=== PATIENT | male | born 1940 | race Caucasian/White ===

== ENCOUNTER → 2016-09-18 | Outpatient (CLI) | payer MEDICARE, BC | END | disposition home or self-care (01) | LOC: GMAB 10:07 | PROVIDERS: ATTEND Family Medicine | DX: Z12.5 Encounter for screening for malignant neoplasm of prostate (principal); I10 Essential (primary) hypertension | CPT/HCPCS: 84443; G0103 ==

== ENCOUNTER → 2017-12-15 | Outpatient (CLI) | payer MEDICARE, BC | LOC: GMAM 16:53 | PROVIDERS: ATTEND Family Medicine | DX: Z12.5 Encounter for screening for malignant neoplasm of prostate (principal) ==

== ENCOUNTER → 2018-05-07 | Outpatient (CLI) | payer MEDICARE, BC | LOC: GMAM 12:16 | PROVIDERS: ATTEND Family Medicine | DX: R41.82 Altered mental status, unspecified (principal) ==

== ENCOUNTER → 2018-05-13 | Outpatient (CLI) | payer MEDICARE, BC ==
--- NOTE | 2018-05-13 13:17 | MRI ---
EXAM DESCRIPTION: Brain w/wo Contrast: Magnetic Resonance Imaging. CLINICAL HISTORY: 77 years Male ALTERED MENTAL STATUS. Dementia COMPARISON: Noncontrast MRI brain 03/07/2015. TECHNIQUE: Multiplanar, high-field MRI, multiple conventional sequences, without and with gadolinium IV contrast. No adverse reactions. Multiple axial diffusion sequences. FINDINGS: Confluent hyperintense FLAIR and T2-weighted signal in the periventricular white matter, relatively symmetric. Scattered bilateral foci of hyperintense FLAIR and T2 signal in the Farrell-white matter junctions of the cerebral hemispheres. No hemorrhage, no cerebral edema, no abnormal contrast enhancement, and no diffusion restriction. Minimal foci of hyperintense T2/FLAIR signal in the posterior bilateral basal ganglia, and bilateral thalami. No hemorrhage, no cerebral edema, no diffusion restriction. Normal contrast enhancement. Normal signal in the brainstem and cerebellar hemispheres. Minimal atrophy of the hemispheres. No hemorrhage, no cerebral edema, no mass-effect. Normal contrast enhancement. Concordance of the diffusion and non-diffusion sequences with no evidence of acute or subacute infarction. Cortical sulci, ventricles, and other CSF spaces, and the subdural spaces are normally configured for patients age. No effacement or displacement. No midline shift. No extra-axial hemorrhage. Normal contrast enhancement. Normal flow signal void in the major vessels of the sleetmute Judd, and the venous sinuses. IACs are symmetric bilaterally. Minimal fluid signal in the right mastoid air cells. No mass effect in the bilateral Cerebellopontine angles. Normal contrast enhancement. Pituitary gland occupies most of the sella. Normal contrast enhancement. Base of the cerebellar tonsils is above the foramen magnum. No periosteal thickening bilaterally involving most of the paranasal sinuses. Left maxillary antrum is almost completely opacified. The bony calvarium is intact. IMPRESSION: 1. Diffuse abnormal signal in the periventricular white matter and subcortical white matter bilaterally is relatively symmetric and consistent with cerebral microvascular disease and age-related changes. Slightly progressed compared to the prior study in 2014. No abnormal contrast enhancement, no diffusion restriction, and no hemorrhage. Similar findings in the bilateral thalami and posterior basal ganglia. 2. 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 Chronic paranasal sinus disease has progressed in the left maxillary antrum which appears to represent acute sinusitis. Electronically signed by: Filippo Campbell MD 05/13/2018 1:15 PM [facility]
== END ==
LOC: MRI 09:00
PROVIDERS: ATTEND Family Medicine
DX: I67.9 Cerebrovascular disease, unspecified (principal); R41.82 Altered mental status, unspecified; H70.12 Chronic mastoiditis, left ear

== ENCOUNTER → 2018-05-18 | Outpatient (CLI) | payer MEDICARE, BC ==
--- NOTE | 2018-05-18 17:49 | US ---
EXAM DESCRIPTION: Carotid Duplex CLINICAL HISTORY: CAROTID BRUIT COMPARISON: None Available. TECHNIQUE: Carotid Doppler ultrasound FINDINGS: Right Submitted images show no significant stenosis in the common carotid, internal carotid or external carotid arteries. Calcified plaque in the carotid bulb. Calcified plaque in the tortuous right CCA. Axial image shows 26% area narrowing of the right carotid bulb. The following flow velocities were obtained: Common carotid artery peak systolic flow velocity measures 124 centimeters per second. Internal carotid artery peak systolic flow velocity measures 66 centimeters per second. External carotid artery peak systolic flow velocity measures 83 centimeters per second. Flow in the right vertebral artery is antegrade. The right internal carotid to common carotid peak systolic flow velocity ratio equals 0.5 which is normal. Left Submitted images show normal caliber of the left common carotid, internal carotid and external carotid arteries with no significant stenosis. Calcified plaque in the left CCA and at the carotid bifurcation. Axial images shows left CCA area stenosis of 31%. Area stenosis measured of the left carotid bulb is approximately 81% on axial images. High velocity flow in the left ICA is consistent with 50-69% stenosis. High-grade stenosis with elevated flow velocity in the proximal left ECA as well. The following flow velocities were obtained: Common carotid artery peak systolic flow velocity measures 90 centimeters per second. Internal carotid artery peak systolic flow velocity measures 172 centimeters per second. This is consistent with 50-69% origin stenosis. External carotid artery peak systolic flow velocity measures 251 centimeters per second. This is consistent with high-grade proximal stenosis. Flow in the left vertebral artery is antegrade. The left internal carotid to common carotid peak systolic flow velocity ratio of 1.9 is at the upper limits of normal. Images from a previous carotid Doppler sonogram April 16, 2012 showed lesser calcified plaque at the right and left carotid bifurcations with no significantly elevated flow velocities in the right or left internal carotid or common carotid arteries. There was elevated flow velocity in the left ECA up to 179 cm/s. Velocity here has increased. IMPRESSION: Elevated flow velocity consistent with 50-69% stenosis of the proximal left ICA. Elevated flow velocity in the proximal left ECA consistent with high-grade proximal stenosis. Electronically signed by: Daniele Medina MD 05/18/2018 5:48 PM TRACER CLERK
== END ==
LOC: US 16:09
PROVIDERS: ATTEND Family Medicine
DX: R09.89 Other specified symptoms and signs involving the circulatory and respiratory systems (principal)

== ENCOUNTER → 2018-05-21 | Outpatient (CLI) | payer MEDICARE, BC | LOC: GMAM 17:49 | PROVIDERS: ATTEND Family Medicine | DX: R06.02 Shortness of breath (principal) ==

== ENCOUNTER → 2018-07-21 | Outpatient (CLI) | payer MEDICARE, BC | LOC: GMAM 18:02 | PROVIDERS: ATTEND Family Medicine | DX: I67.9 Cerebrovascular disease, unspecified (principal) ==

== ENCOUNTER 2018-09-03 23:03 | Inpatient (IN) | payer MEDICARE, BC ==
[2018-09-03] MEDS ORDERED: IPRATROPIUM/ALBUTEROL 3 ML VIAL NEB ONE (23:16)
--- NOTE | 2018-09-03 23:25 | ED.PDOC ---
History of Present Illness - General Chief Complaint: Respiratory Problem Stated Complaint: Dyspnea Time Seen by Provider: 09/03/18 23:23 Source: patient, family - Exam Limitations: no limitations - History of Present Illness Initial Comments: Michele Emerson 77 y/o male came to ER with SOB and productive cough this AM gradually got worse tonight.has history of COPD. Denies chills,fever.Has HHN at home but not using it and using 3 MDI for his copd.Had been seen by trailer technician in the past. Timing/Duration: 7-24 hours Severity: moderate Activities at Onset: none Possible Cause: occasional episodes, allergen exposure Improving Factors: nothing Worsening Factors: nothing Associated Symptoms: other - see hpi Respiratory Risk Factors: exposure to allergen Allergies/Adverse Reactions: Allergies NO KNOWN ALLERGY Allergy (Verified 11/20/15 17:27) Home Medications: Ambulatory Orders Albuterol Sulfate Nebs [Proventil Nebs] 2.5 mg INH PRN PRN 11/20/15 Aspirin (Buffered) 325 mg [Bufferin 325 mg] 1 ea PO QD 11/20/15 Fluticasone/Salmeterol 500/50 [Advair 500/50 Diskus] 1 puff INH BID 11/20/15 Losartan Potassium 100 mg PO DAILY 11/20/15 Memantine HCl [Namenda] 10 mg PO BID 11/20/15 Montelukast Sodium 10 mg PO DAILY 11/20/15 Tiotropium [place] Monohydrate [Spiriva Handihaler] 18 mcg IN DAILY 11/20/15 Review of Systems - Review of Systems Constitutional: States: no symptoms reported EENTM: States: no symptoms reported Respiratory: States: see HPI Cardiology: States: no symptoms reported Gastrointestinal/Abdominal: States: no symptoms reported Genitourinary: States: no symptoms reported Musculoskeletal: States: no symptoms reported Skin: States: no symptoms reported Neurological: States: no symptoms reported All other Systems: Reviewed and Negative, No Change from Baseline Past Medical History (General) - Patient Medical History Hx Seizures: No Hx Stroke: No Hx Dementia: Yes Hx Asthma: Yes Hx of COPD: Yes Hx Cardiac Disorders: No Hx Congestive Heart Failure: No Hx Pacemaker: No Hx Hypertension: Yes Hx Diabetes: No Hx MRSA: No Surgical History: other - hernia repair;loop recorder - Vaccination History Hx Tetanus, Diphtheria Vaccination: Yes - greater then 5-10 years Hx Influenza Vaccination: Yes - 2016 Hx Pneumococcal Vaccination: Yes - 2016 - Social History Hx Tobacco Use: Yes Hx Alcohol Use: No Hx Substance Use: No Hx Physical Abuse: No Hx Emotional Abuse: No Family Medical History - Family History Father Family History: Unknown Hx Cardiac Disease: Yes - dad Hx Family;Other: Mental problem-mom;Brothers-Alzheimers disease Physical Exam - Physical Exam General Appearance: Alert, Comfortable, No apparent distress Eyes, Ears, Nose, Throat Exam: normal ENT inspection Neck: non-tender, supple, carotid bruit - left side Respiratory: chest non-tender, no respiratory distress, decreased breath sounds Cardiovascular/Chest: normal peripheral pulses, regular rate, rhythm, no murmur Peripheral Pulses: radial,right: 2+, radial,left: 2+ Gastrointestinal/Abdominal: non tender, soft Extremity: non-tender, normal inspection, no pedal edema, no calf tenderness Neurologic: alert, oriented x 3 Skin Exam: normal color, warm/dry Lymphatic: no adenopathy Progress - Progress Progress: 09/03/18 23:46 Vital Signs - 8 hr 09/03/18 09/03/18 09/03/18 23:20 23:25 23:26 Temperature 98.6 F Pulse Rate 108 H Pulse Rate [ 112 H left] Respiratory 24 24 24 Rate Blood Pressure 163/107 [left] O2 Sat by Pulse 94 L 89 L Oximetry 09/03/18 23:39 Temperature Pulse Rate 112 H Pulse Rate [ left] Respiratory 20 Rate Blood Pressure [left] O2 Sat by Pulse Oximetry - Results/Orders Results/Orders: 09/03/18 11:45 B-TYPE NATRIURETIC PEPTIDE/BNP Stat CARDIAC PANEL,ER Stat HEPATIC FUNCTION PANEL Stat 09/03/18 23:25 IV Care:Saline Lock per Protoc QSHIFT URINALYSIS Stat 09/04/18 00:18 SVN/Updraft Therapy .PRN 09/04/18 00:19 SVN/Updraft Therapy .ONCE 09/04/18 00:29 Magnesium Sulfate Premix 2Gm 2 gm Premix Bag 1 bag IVPB ONCE 09/04/18 01:06 cefTRIAXone SODIUM [Rocephin] 1 gm Sodium Chl 0.9% 50Ml Min-Bag+ [NS 50ml MINI-BAG+] 50 ml IVPB ONCE 09/04/18 01:10 ED Intent to Admit Routine Laboratory Results - last 24 hr 09/03/18 11:45 WBC 14.3 H RBC 4.70 Hgb 14.4 Hct 43.0 MCV 91.5 MCH 30.6 MCHC 33.4 RDW 13.2 Plt Count 324 MPV 7.9 Absolute Neuts (auto) 10.20 H Absolute Lymphs (auto) 2.30 Absolute Monos (auto) 1.50 H Absolute Eos (auto) 0.10 Absolute Basos (auto) 0.10 Neutrophils % 71.6 Lymphocytes % 16.4 L Monocytes % 10.9 H Eosinophils % 0.4 L Basophils % 0.7 PT 10.3 INR 1.03 PTT (SP) 26.6 Sodium 134 L Potassium 3.5 L Chloride 98 L Carbon Dioxide 24 Anion Gap 15.5 BUN 9 Creatinine 0.66 BUN/Creatinine Ratio 13.6 Random Glucose 132 H Serum Osmolality 268.8 L Calcium 8.7 Magnesium 0.9 L* Total Bilirubin 0.3 Direct Bilirubin 0.1 Indirect Bilirubin 0.2 AST 26 ALT 24 Alkaline Phosphatase 56 Creatine Kinase 281 H* CK-MB (CK-2) 8.9 H* CK-MB (CK-2) % 3.17 Troponin I < 0.02 Serum Total Protein 7.7 Albumin 4.5 - EKG/XRAY/CT XRAY: chest - no acute findings noted Departure - Departure Clinical Impression: COPD exacerbation, Hypomagnesemia Time of Disposition: 01:12 Disposition: Admit Patient Condition: Fair Departure Forms: Patient Portal Self Enrollment Referrals: Rick Nguyen MD [Primary Care Provider] - 1-2 Weeks Home Medications: Ambulatory Orders Albuterol Sulfate Nebs [Proventil Nebs] 2.5 mg INH PRN PRN 11/20/15 Aspirin (Buffered) 325 mg [Bufferin 325 mg] 1 ea PO QD 11/20/15 Fluticasone/Salmeterol 500/50 [Advair 500/50 Diskus] 1 puff INH BID 11/20/15 Losartan Potassium 100 mg PO DAILY 11/20/15 Memantine HCl [Namenda] 10 mg PO BID 11/20/15 Montelukast Sodium 10 mg PO DAILY 11/20/15 Tiotropium [place] Monohydrate [Spiriva Handihaler] 18 mcg IN DAILY 11/20/15 Decision To Admit - Decistion To Admit Decision to Admit Reason: Admit from ER Decision to Admit Date: 09/04/18 Decision to Admit Time: 01:09 - D/W Nina Cagle-DIANE/Hospitalist
[2018-09-03] MEDS ORDERED: methylPREDNISolone SODIUM SUC 125 MG/2 ML VIAL IV ONE (23:46)
--- NOTE | 2018-09-03 23:55 | RAD ---
EXAM: XR Chest, 2 Views CLINICAL HISTORY: The patient is 77 years old and is Male; Dyspnea TECHNIQUE: Frontal and lateral views of the chest. COMPARISON: Chest radiograph December 02, 2015. FINDINGS: LUNGS: Suggestion of scarring/pleural thickening within the left lower lobe is noted, unchanged. No consolidation. PLEURAL SPACE: Unremarkable. No pneumothorax. HEART: The cardiac silhouette is stable and minimally prominent. MEDIASTINUM: Unremarkable. BONES/JOINTS: Unremarkable. VASCULATURE: Prominence of the central vasculature is noted. IMPRESSION: No acute cardiopulmonary process. Electronically signed by: Ale Gamez MD 09/03/2018 11:54 PM CDT
[2018-09-04] MEDS ORDERED: LEVALBUTEROL NEBS 1.25 MG/3 ML VIAL NEB ONE (00:18)
[2018-09-04] MEDS ORDERED: MAGNESIUM SULFATE PREMIX 2GM 2 GM in PREMIX BAG 1 BAG IVPB ONE ×2 (00:29→10:08)
[2018-09-04] MEDS ORDERED: MAGNESIUM SULFATE PREMIX 2GM 50 ML IVPB ONE ×2 (00:44→10:13)
[2018-09-04] MEDS ORDERED: cefTRIAXone SODIUM 1 GM in SODIUM CHL 0.9% 50ML MIN-BAG+ 50 ML IVPB ONE (01:06)
--- NOTE | 2018-09-04 01:20 | HP ---
SUPERVISING PHYSICIAN: Slick Sharp MD CHIEF COMPLAINT: Shortness of breath. HISTORY OF PRESENT ILLNESS: This is a 77-year-old male patient who had been coughing with clear sputum for several days. His reported that he had also been wheezing. He does not like to take his nebulizer treatments at home and only uses his MDI. It progressively worsened to the point that he had to come to the Emergency Room last night. His oxygen saturations got down to 89%. He required multiple breathing treatments. His heart rate was in the 1-teens. He was afebrile. Respiratory rate was 24. His WBCs were 14,300 with hemoglobin 14.4, hematocrit 43. Sodium 134, potassium 3.5, chloride 98, serum osmolality 268.8 with magnesium 0.9. His liver functions were within normal limits. Troponin was less than 0.02 with creatinine kinase 281 and CK-MB 8.9. Urinalysis was unremarkable. Chest x-ray showed no acute cardiopulmonary process. I was called for hospital admission. PAST MEDICAL HISTORY: 1. History of paroxysmal atrial fibrillation on metoprolol and Xarelto. 2. Hyperlipidemia. 3. Hypertension on losartan and metoprolol. 4. Chronic obstructive pulmonary disease. 5. Dementia. PAST SURGICAL HISTORY: 1. Bilateral inguinal hernia repair. OUTPATIENT MEDICATIONS: 1. Albuterol. 2. Aspirin. 3. Donepezil. 4. Losartan. 5. Namenda. 6. Metoprolol. 7. Mometasone Furoate-Formoterol. 8. Phenytoin. 9. Xarelto. 10. Rosuvastatin. 11. Spiriva. ALLERGIES: NO KNOWN DRUG ALLERGIES. FAMILY HISTORY: Positive for congestive heart failure, coronary artery disease and myocardial infarction. SOCIAL HISTORY: He is retired. He lives in [place]. He quit smoking tobacco approximately 38 years ago. He drinks alcohol socially. He denies any illicit drug use. REVIEW OF SYSTEMS: GENERAL: Negative for fever, fatigue or weight changes. HEENT: Negative for sinus symptoms, ear pain, vision changes or sore throat. RESPIRATORY: Positive for wheezing, coughing or shortness of breath. CARDIAC: Negative for chest pain, palpitations or tachycardia. GASTROINTESTINAL: Negative for nausea, vomiting, diarrhea, constipation. GENITOURINARY: Negative for hematuria, dysuria or polyuria. MUSCULOSKELETAL: Negative for arthralgias, myalgias. SKIN: Negative for lesions or rashes. NEUROLOGIC: Negative for headache, dizziness. PHYSICAL EXAMINATION: VITAL SIGNS: T-max 24 hours is 99. Heart rate 107. Blood pressure 138/85. Respiratory rate 20. O2 saturation 91% on 2 liters nasal cannula. GENERAL: This is a 77-year-old male patient who is sitting up in his hospital bed. He is in mild respiratory distress. HEENT: Normocephalic, atraumatic. Pupils are equal and reactive. Oropharynx is clear. NECK: Supple without mass. RESPIRATORY: Diminished breath sounds throughout with a few expiratory wheezes. He is slightly tachypneic with exertion or speaking. He does have to speak in short phrases due his shortness of breath. CARDIOVASCULAR: Slightly tachycardic rate, slightly irregular rhythm. GASTROINTESTINAL: Abdomen is soft, nondistended, nontender. Bowel sounds are positive. EXTREMITIES: No cyanosis, clubbing or edema. NEUROLOGIC: Awake, alert and oriented times three. Cranial nerves II-XII are grossly intact. SKIN: Warm and dry. LABORATORY: AM labs show slight improvement to his WBCs of 12,100 with hemoglobin 13.4 and hematocrit 40.6. He does have a left shift on differential. Electrolytes are basically within normal limits with the exception of his calcium is 8.2. On admission, his magnesium was 0.9. After replacement today, it is 1.4. Sputum culture pending. IMPRESSION: 1. Sepsis related to acute bronchitis with an exacerbation of chronic obstructive pulmonary disease with concerns for developing community acquired pneumonia with an admitting white count of 14,300, heart rate 110 and respiratory rate 24. 2. Chronic obstructive pulmonary disease with acute exacerbation in a patient with previous history of tobacco use. 3. Hypertension, well controlled on medications. 4. Hyperlipidemia. 5. History of atrial fibrillation on Xarelto and metoprolol. 6. Dementia. PLAN: We will admit the patient to the hospital. I have started him on aggressive pulmonary hygiene including scheduled and p.r.n. nebulizer treatments. I have also given him a tapered dose of IV steroids. I will also give him some magnesium replacement today and recheck his labs in the morning as well as chest x-ray. He has been started on azithromycin and Rocephin. He would most likely benefit from pulmonary rehab after discharge and tomorrow, I will do an ambulation study to see if he meets requirements for home oxygen. He has seen a jaw skinner in the past and he may need followup with Dr. Evangelista. I have also had a lengthy discussion about the need for nebulizer treatments at home. We will continue to monitor the patient closely and follow as needed. #[id number] [facility]
[2018-09-04] MEDS ORDERED: cefTRIAXone SODIUM 1 GM VIAL ONE ×2 (01:58→18:57)
[2018-09-04] MEDS ORDERED: SODIUM CHL 0.9% 50ML MIN-BAG+ 50 ML IVPB ONE ×2 (01:58→18:56)
[2018-09-04] MEDS ORDERED: SODIUM CHLORIDE 0.9% (FLUSH) 10 ML SYG IV PRN (02:48)
[2018-09-04] MEDS ORDERED: ALBUTEROL SULFATE 2.5 MG/3 ML VIAL NEB PRN ×2 (02:48→09:00)
[2018-09-04] MEDS ORDERED: IV SET AND CAP CHANGE INJ INJ SCH (03:00)
[2018-09-04] MEDS ORDERED: KCL 20 MEQ/NS 1,000 ML IVS ONE (03:01)
[2018-09-04] MEDS ORDERED: SODIUM CHLORIDE 0.9% 250ML 250 ML ONE ×2 (03:51→18:56)
[2018-09-04] MEDS ORDERED: AZITHROMYCIN IV 500 MG VIAL IVPB ONE ×2 (03:51→18:57)
[2018-09-04] MEDS: AZITHROMYCIN IV 500 MG in SODIUM CHLORIDE 0.9% 250ML 250 ML IVPB SCH (05:31)
[2018-09-04] MEDS: PANTOPRAZOLE SODIUM IV 40 MG VIAL IV SCH (06:10)
[2018-09-04] MEDS ORDERED: PHENYTOIN SODIUM CAP EXTENDED 100 MG CAP PO ONE (07:20)
[2018-09-04] MEDS ORDERED: RIVAROXABAN 10 MG TAB ONE (07:20)
[2018-09-04] MEDS ORDERED: DONEPEZIL HCL 5 MG TAB ONE (07:21)
[2018-09-04] MEDS: IPRATROPIUM/ALBUTEROL 3 ML VIAL INH SCH ×4 (08:10→20:31)
[2018-09-04] MEDS: PHENYTOIN SODIUM CAP EXTENDED 100 MG CAP PO SCH (08:57)
[2018-09-04] MEDS: METOPROLOL TARTRATE 25 MG TAB PO SCH (08:57)
[2018-09-04] MEDS: DONEPEZIL HCL 5 MG TAB PO SCH (08:58)
[2018-09-04] MEDS: MEMANTINE 10 MG TAB PO SCH ×2 (08:58→20:38)
[2018-09-04] MEDS: LOSARTAN POTASSIUM 100 MG TAB PO SCH (08:58)
[2018-09-04] MEDS ORDERED: ASPIRIN 325 MG PO SCH (09:00)
[2018-09-04] MEDS ORDERED: ASPIRIN TABLET 325 MG TAB ONE (09:00)
[2018-09-04] MEDS ORDERED: TIOTROPIUM INHALER INH SCH (09:00)
[2018-09-04] MEDS: RIVAROXABAN 10 MG TAB PO SCH (09:02)
[2018-09-04] MEDS: ATORVASTATIN 20 MG TAB PO SCH (09:02)
[2018-09-04] MEDS: SODIUM CHLORIDE 0.9% (FLUSH) 10 ML SYG IV SCH ×2 (09:09→20:38)
[2018-09-04] MEDS: methylPREDNISolone SODIUM SUC 125 MG/2 ML VIAL IV SCH ×3 (12:12→23:33)
[2018-09-05] MEDS ORDERED: cefTRIAXone SODIUM 1 GM in SODIUM CHL 0.9% 50ML MIN-BAG+ 50 ML IVPB SCH ×2
[2018-09-05] MEDS: methylPREDNISolone SODIUM SUC 125 MG/2 ML VIAL IV SCH (05:35)
[2018-09-05] MEDS: AZITHROMYCIN IV 500 MG in SODIUM CHLORIDE 0.9% 250ML 250 ML IVPB SCH (05:35)
[2018-09-05] MEDS: PANTOPRAZOLE SODIUM IV 40 MG VIAL IV SCH (06:15)
--- NOTE | 2018-09-05 07:26 | RAD ---
EXAM: XR Chest, 2 Views CLINICAL HISTORY: The patient is 77 years old and is Male; copd TECHNIQUE: Frontal and lateral views of the chest. COMPARISON: Chest radiograph from 09/03/2018 FINDINGS: LUNGS: Minimal left basilar density suggesting atelectasis. The lungs are otherwise clear. PLEURAL SPACE: No significant pleural effusion. No obvious pneumothorax. HEART: Stable mild enlargement of the cardiac silhouette. MEDIASTINUM: Unremarkable. BONES/JOINTS: Stable height loss of a lower thoracic vertebral body. No acute fracture visualized. TUBES, LINES AND DEVICES: Implanted loop recorder noted projecting over the anterior chest wall. IMPRESSION: Minimal left basilar atelectasis. Electronically signed by: Justyna Cunningham MD 09/05/2018 7:24 AM CDT
[2018-09-05] MEDS: IPRATROPIUM/ALBUTEROL 3 ML VIAL INH SCH ×4 (08:15→20:17)
[2018-09-05] MEDS: LOSARTAN POTASSIUM 100 MG TAB PO SCH (09:11)
[2018-09-05] MEDS: ATORVASTATIN 20 MG TAB PO SCH (09:11)
[2018-09-05] MEDS: DONEPEZIL HCL 5 MG TAB PO SCH (09:11)
[2018-09-05] MEDS: ASPIRIN TABLET 325 MG TAB PO SCH (09:11)
[2018-09-05] MEDS: RIVAROXABAN 10 MG TAB PO SCH (09:12)
[2018-09-05] MEDS: MEMANTINE 10 MG TAB PO SCH ×2 (09:13→20:37)
[2018-09-05] MEDS: METOPROLOL TARTRATE 25 MG TAB PO SCH (09:16)
[2018-09-05] MEDS: SODIUM CHLORIDE 0.9% (FLUSH) 10 ML SYG IV SCH (09:22)
[2018-09-05] MEDS: PHENYTOIN SODIUM CAP EXTENDED 100 MG CAP PO SCH (09:24)
[2018-09-05] MEDS: TIOTROPIUM INHALER INH SCH (11:40)
[2018-09-05] MEDS: methylPREDNISolone SODIUM SUC 40 MG/ML VIAL IV SCH ×2 (12:43→18:03)
[2018-09-05] MEDS: guaiFENesin ER TAB 600 MG TAB PO SCH ×2 (12:43→20:37)
--- NOTE | 2018-09-05 12:46 | PN ---
DATE: 09/05/18 SUPERVISING PHYSICIAN: Slick Sharp M.D. SUBJECTIVE: The patient is sitting up in his chair in his room. He looks to be in moderate respiratory distress with pursed lip breathing. We discussed going to pulmonary rehab as well as seeing a ear nose and throat specialist as well as doing a sleep apnea study. His says that he get very short of breath just going in and out of their house. I discussed at length his nebulizer treatments as well as the chronic medications to control symptoms, and that he may need further testing after discharge. Today, he continues complaints of shortness of breath but there is no chest pain, nausea, vomiting, diarrhea or constipation. OBJECTIVE: Temperature 98.2, heart rate 96, blood pressure 119/65, respiratory rate 24, O2 sat 91%. RESPIRATORY: Diminished breath sounds throughout. The patient is visibly short of breath. He does have pursed lip breathing. He can only speak in short phrases. CARDIAC: Regular rate and rhythm. GASTROINTESTINAL: Abdomen is soft, nondistended, non-tender. Bowel sounds are positive. NEUROLOGIC: He is awake, alert and oriented times three. LABORATORY: WBCs are 13,100 with hemoglobin 12.2, hematocrit 36.8. Sodium 132, potassium 4.1, chloride 98, calcium 7.6, magnesium 1.8. Sputum culture is pending. Chest x-ray shows minima left basilar atelectasis. All other labs and films have been reviewed via the EMR. ASSESSMENT: 1. Sepsis related to acute bronchitis with an exacerbation of chronic obstructive pulmonary disease with continued concerns for developing community acquired pneumonia. His admitting white count was 14,300, heart rate 110 and respiratory rate 24. 2. Chronic obstructive pulmonary disease with acute exacerbation in a patient with previous history of tobacco use. 3. Hypertension, well controlled on medications. 4. Hyperlipidemia. 5. History of atrial fibrillation on Xarelto and metoprolol. 6. Dementia. 7. Hypomagnesemia that has resolved. PLAN: We will continue present supportive care. I have reordered lab in the morning. Will hold on the chest x-ray until Friday. For some reason his ambulation study was not done yesterday and I will have them do that today to see if he qualifies for home oxygen. I have also encouraged him to ambulate in the hallways. He will need a followup with his ear nose and throat specialist, Dr. Evangelista, as well as possible pulmonary rehab on discharge. He may benefit also from a sleep apnea study. We will continue to monitor him closely and follow as needed. #[id number] [facility]
[2018-09-05] MEDS ORDERED: CEFUROXIME AXETIL TAB 250 MG TAB PO ONE (18:10)
[2018-09-05] MEDS: CEFUROXIME AXETIL TAB 250 MG TAB PO SCH (18:16)
[2018-09-05] MEDS ORDERED: CEFDINIR 300 MG CAP ONE (18:17)
[2018-09-05] MEDS: ALPRAZolam 0.25 MG TAB PO PRN (18:20)
[2018-09-05] MEDS ORDERED: CEFUROXIME AXETIL TAB 250 MG TAB PO SCH (18:30)
[2018-09-05] MEDS ORDERED: PHENYTOIN SODIUM CAP EXTENDED 100 MG CAP PO SCH (21:00)
[2018-09-06] MEDS: ALPRAZolam 0.25 MG TAB PO PRN (01:57)
[2018-09-06] MEDS: CEFUROXIME AXETIL TAB 250 MG TAB PO SCH (05:46)
[2018-09-06 06:11] VITALS: BP 165/80; TEMP 97.8
[2018-09-06] MEDS ORDERED: PANTOPRAZOLE SODIUM TAB 40 MG PO SCH (06:30)
[2018-09-06] MEDS: IPRATROPIUM/ALBUTEROL 3 ML VIAL INH SCH ×2 (07:41→11:44)
[2018-09-06] MEDS: TIOTROPIUM INHALER INH SCH (07:42)
[2018-09-06] MEDS ORDERED: predniSONE 20 MG TAB PO SCH (09:00)
[2018-09-06] MEDS ORDERED: AZITHROMYCIN 250 MG TAB PO ONE (09:00)
[2018-09-06] MEDS: MEMANTINE 10 MG TAB PO SCH (11:08)
[2018-09-06] MEDS: ASPIRIN TABLET 325 MG TAB PO SCH (11:09)
[2018-09-06] MEDS: METOPROLOL TARTRATE 25 MG TAB PO SCH (11:09)
[2018-09-06] MEDS: guaiFENesin ER TAB 600 MG TAB PO SCH (11:11)
[2018-09-06] MEDS: LOSARTAN POTASSIUM 100 MG TAB PO SCH (11:11)
[2018-09-06] MEDS: DONEPEZIL HCL 5 MG TAB PO SCH (11:12)
[2018-09-06] MEDS: ATORVASTATIN 20 MG TAB PO SCH (11:12)
[2018-09-06] MEDS: RIVAROXABAN 10 MG TAB PO SCH (11:12)
[2018-09-06] MEDS ORDERED: MAGNESIUM OXIDE 400 MG TAB PO SCH (11:30)
[2018-09-06 17:04] VITALS: O2SAT 93
--- NOTE | 2018-09-06 22:10 | DS ---
SUPERVISING PHYSICIAN: Slick Sharp M.D. DISCHARGE DIAGNOSIS: 1. Sepsis related to acute bronchitis with an exacerbation of chronic obstructive pulmonary disease with continued concerns for developing community acquired pneumonia. His admitting white count was 14,300, heart rate 110 and respiratory rate 24. 2. Chronic obstructive pulmonary disease with acute exacerbation in a patient with previous history of tobacco use. 3. Hypertension, well controlled on medications. 4. Hyperlipidemia. 5. History of atrial fibrillation on Xarelto and metoprolol. 6. Dementia. 7. Hypomagnesemia. Has received multiple doses of magnesium replacement. HISTORY OF PRESENT ILLNESS: This is a 77-year-old male patient who had been coughing with clear sputum for several days. His reported that he had also been wheezing. He is poorly compliant with his nebulizer treatments at home and he only uses his MDI. His shortness of breath worsened progressively to the point that he came to the Emergency Room. His O2 sats got down to 89%. He was pursed lip breathing. He required multiple breathing treatments. His heart rate was in the 1-teens. He was afebrile. Respiratory rate was 24. CBC showed WBCs of 14,300 with hemoglobin 14.4, hematocrit 43. Sodium 134, potassium 3.5, chloride 98, serum osmolality 268.8 with magnesium 0.9. His liver functions were within normal limits. Troponin was less than 0.02 with creatinine kinase 281 and CK-MB 8.9. Urinalysis was unremarkable. Chest x-ray showed no acute cardiopulmonary process. The patient was admitted to the hospital. HOSPITAL COURSE: The patient continued to be short of breath over the next several days. He was continued on Rocephin and azithromycin as well as IV steroids. He and his got extensive COPD teaching on the importance of using his nebulizer and compliance with his COPD medications. The patient does have some dementia and he does have some issues with following his medication orders. He actually had pursed lip breathing for the first 48 hours while in the hospital, but he slowly improved where his oxygen saturations stayed in the low 90s on room air. An O2 ambulation study was completed and at this time he does not qualify for home oxygen. He does have some problems with his dementia and last night he became agitated and was more confused than normal most likely due to his dementia and some mild Sundowner's syndrome. Today, he is answering questions appropriately and his vital signs are stable. He can be discharged home in stable condition. LABORATORY: WBCs started at 14,300 and today are 13,000. He is on steroids. Hemoglobin and hematocrit started at 14.4 and 43, and today are 12 and 36.6. He did have a left shift on his differential but that has normalized now. Electrolytes are basically within normal limits today with the exception of his magnesium. After supplementation, his magnesium went up to 1.4 and then 1.8, today it is 1.6. He received some oral mag ox today. His sputum culture is still pending. RADIOLOGY: Followup chest x-ray shows minimal left basilar atelectasis. DISCHARGE PLAN: The patient will be discharged home in stable condition. He is to resume his previous diet. He is also to resume his previous medications. I have added azithromycin, Ceftin and a prednisone taper as well as Guaifenesin to his routine medications. He is to call Dr. Nguyen's office in the morning for hospital followup visit. It is recommended he get a chest x-ray, CBC and CMP, including magnesium on followup. He has seen Dr. Evangelista, salesperson [employer], in the past and it may be advisable to have a followup appointment with him, and he also may benefit from pulmonary rehab. I spoke to the family at length and his would really like him to participate in pulmonary rehab. I did not send him home on any magnesium supplementation, but given his chronically low magnesium in spite of supplementation it may be beneficial to add some magnesium supplementation at some point. I have again encouraged him to take his medications as prescribed by Dr. Nguyen and Dr. Evangelista. He is to return to the hospital or followup with Dr. Nguyen's office for any problems or complications. DISCHARGE MEDICATIONS: 1. Spiriva. 2. Namenda. 3. Losartan. 4. Aspirin. 5. Albuterol nebs. 6. Phenytoin. 7. Albuterol sulfate MDI. 8. Donepezil. 9. Rosuvastatin. 10. Xarelto. 11. Dulera. 12. Metoprolol. 13. Azithromycin. 14. Ceftin. 15. Guaifenesin. 16. Prednisone taper. #[id number] [facility]
== END 2018-09-06 12:25 | disposition home or self-care (01) | DRG 872 ==
LOC: ER 23:03 → MS 09-04 01:19 → OBSVTOIN 09-04 01:19
PROVIDERS: ADMIT Nurse Practitioner Acute Care; ATTEND Nurse Practitioner Acute Care
DX: A41.9 Sepsis, unspecified organism (principal); J44.0 Chronic obstructive pulmonary disease with (acute) lower respiratory infection; J44.1 Chronic obstructive pulmonary disease with (acute) exacerbation; F05 Delirium due to known physiological condition; I48.0 Paroxysmal atrial fibrillation; J20.9 Acute bronchitis, unspecified; I10 Essential (primary) hypertension; E78.5 Hyperlipidemia, unspecified; F03.90 Unspecified dementia, unspecified severity, without behavioral disturbance, psychotic disturbance, mood disturbance, and anxiety; E83.42 Hypomagnesemia; Z79.01 Long term (current) use of anticoagulants; Z79.82 Long term (current) use of aspirin; Z79.51 Long term (current) use of inhaled steroids; Z87.891 Personal history of nicotine dependence; Z82.49 Family history of ischemic heart disease and other diseases of the circulatory system; Z82.0 Family history of epilepsy and other diseases of the nervous system

== ENCOUNTER 2018-09-18 20:12 | Emergency (ER) | payer MEDICARE, BC ==
--- NOTE | 2018-09-18 20:14 | ED.PDOC ---
History of Present Illness - General Chief Complaint: Upper Extremity Injury Stated Complaint: fall Time Seen by Provider: 09/18/18 20:14 Source: patient, family Exam Limitations: no limitations - History of Present Illness Initial Comments: Michele Emerson 77 y/o male stated after getting out of car in the garage he had suddenly fall and stated might have passed out but denies head neck injury but with skin tear on his right elbow and hand after incident.Denies weakness,dysarthria ,headache,neck pains hip pains .Incident witnessed by family members.He was able to remember incident.Had neuroimaging studies in the past showing microvascular disease with decreas hippocampal volumes. Occurred: just prior to arrival Severity: moderate Injuries/Pain Location: upper extremity - right elbow and hand Reason for Fall: lost balance Loss of Consciousness: brief (seconds) Improving Factors: nothing Worsening Factors: nothing Associated Symptoms (Fall): denies symptoms Allergies/Adverse Reactions: Allergies NO KNOWN ALLERGY Allergy (Verified 09/04/18 02:26) Home Medications: Ambulatory Orders Albuterol Sulfate Nebs [Proventil Nebs] 2.5 mg INH PRN PRN 11/20/15 Aspirin (Buffered) 325 mg [Bufferin 325 mg] 1 ea PO QD 11/20/15 Losartan Potassium 100 mg PO DAILY 11/20/15 Memantine HCl [Namenda] 10 mg PO BID 11/20/15 Tiotropium [place] Monohydrate [Spiriva Handihaler] 18 mcg IN DAILY 11/20/15 Albuterol Sulfate [Proair Hfa] 1 puff PO PRN PRN 09/04/18 Metoprolol Tartrate 12.5 mg PO DAILY 09/04/18 Phenytoin Sodium Extended 300 mg PO DAILY 09/04/18 Rivaroxaban [Xarelto] 20 mg PO DAILY 09/04/18 Rosuvastatin Calcium 20 mg PO DAILY 09/04/18 Memantine HCl [Namenda] 10 mg PO DAILY 09/18/18 Review of Systems - Review of Systems Constitutional: States: no symptoms reported EENTM: States: no symptoms reported Respiratory: States: no symptoms reported Cardiology: States: no symptoms reported Gastrointestinal/Abdominal: States: no symptoms reported Genitourinary: States: no symptoms reported Skin: States: see HPI Neurological: States: see HPI All other Systems: Reviewed and Negative, No Change from Baseline Past Medical History (General) - Patient Medical History Hx Seizures: Yes Hx Stroke: No Hx Dementia: Yes Hx Asthma: No Hx of COPD: Yes Hx Cardiac Disorders: No Hx Congestive Heart Failure: No Hx Pacemaker: No Hx Hypertension: Yes Hx Diabetes: No Hx MRSA: No Surgical History: other - hernia repair,loop recrorder - Vaccination History Hx Tetanus, Diphtheria Vaccination: Yes - greater then 5-10 years Hx Influenza Vaccination: Yes - 2016 Hx Pneumococcal Vaccination: Yes - 2016 - Social History Hx Tobacco Use: Yes Hx Alcohol Use: No Hx Substance Use: No Hx Physical Abuse: No Hx Emotional Abuse: No Physical Exam - Physical Exam General Appearance: Alert, Comfortable, No apparent distress Head Injury: no evidence of injury Eye Exam: bilateral normal ENT Exam: hearing grossly normal, no evidence of ENT injury, no dental injury Peripheral Pulses: radial,right: 2+, radial,left: 2+ Cardiovascular/Respiratory: regular rate, rhythm, no M/R/G, normal peripheral pulses, no respiratory distress, other - decrease breath sounds Gastrointestinal/Abdominal: non tender, soft Back Exam: no CVA tenderness, no vertebral tenderness Extremity Exam: no pedal edema, pain with movement Neurologic: alert Skin Exam: normal color, warm/dry, other - skin tear right elbow and hand - [place] Coma Score Best Eye Response ([place]): (4) open spontaneously Best Verbal Response ([place]): (5) oriented Best Motor Response ([place]): (6) obeys commands [place] Total: 15 Progress - Progress Progress: 09/18/18 21:09 Vital Signs - 8 hr 09/18/18 09/18/18 20:23 20:30 Temperature 98.7 F Pulse Rate [ 72 82 Left Brachial] Respiratory 22 20 Rate Blood Pressure 187/72 150/69 [Left Arm] O2 Sat by Pulse 99 95 Oximetry 09/18/18 21:49 Skin tear cleanse with saline adaptic applied and stretch bandage. 09/18/18 21:51 Discuss all test result with patient and - Results/Orders Results/Orders: Laboratory Tests 09/18/18 09/18/18 20:43 20:57 WBC 13.3 H RBC 4.37 L Hgb 13.4 L Hct 40.1 L MCV 91.7 MCH 30.7 MCHC 33.5 RDW 13.1 Plt Count 290 MPV 8.0 Absolute Neuts (auto) 10.10 H Absolute Lymphs (auto) 2.00 Absolute Monos (auto) 1.00 H Absolute Eos (auto) 0.00 Absolute Basos (auto) 0.10 Neutrophils % 76.2 Lymphocytes % 15.2 L Monocytes % 7.5 Eosinophils % 0.2 L Basophils % 0.9 PT 10.8 INR 1.08 PTT (SP) 26.4 Sodium 134 L Potassium 3.9 Chloride 98 L Carbon Dioxide 26 Anion Gap 13.9 BUN 17 Creatinine 0.75 BUN/Creatinine Ratio 22.7 H Random Glucose 155 H Serum Osmolality 271.1 L Calcium 8.3 L Magnesium 1.1 L Total Bilirubin 0.9 Direct Bilirubin 0.4 H Indirect Bilirubin 0.5 AST 38 ALT 33 Alkaline Phosphatase 51 Creatine Kinase 101 CK-MB (CK-2) 4.4 CK-MB (CK-2) % Not Reportable Troponin I < 0.02 Serum Total Protein 6.5 Albumin 3.7 Phenytoin 10.3 - EKG/XRAY/CT EKG: Sinus, RBBB - incomplete, nonspecific ST T wave Chg, Unchanged from - 20 november 2015 Comments: HR-75 XRAY: elbow - right-no fracture/dislocationj CT Ordered: Yes - small vessel disease;no hemoorhage or infarct Departure - Departure Clinical Impression: Hypomagnesemia, Hypocalcemia Fall Qualifiers: Encounter type: initial encounter Qualified Code(s): W19.XXXA - Unspecified fall, initial encounter Skin tear of elbow without complication Qualifiers: Encounter type: initial encounter Laterality: right Qualified Code(s): S51.011A - Laceration without foreign body of right elbow, initial encounter Time of Disposition: 21:51 Disposition: Discharge to Home or Self Care Condition: Fair Departure Forms: ED Discharge - Pt. Copy, Patient Portal Self Enrollment Instructions: Skin Abrasions (DC) Referrals: Rick Nguyen MD [Primary Care Provider] - 1-2 Weeks Home Medications: Ambulatory Orders Albuterol Sulfate Nebs [Proventil Nebs] 2.5 mg INH PRN PRN 11/20/15 Aspirin (Buffered) 325 mg [Bufferin 325 mg] 1 ea PO QD 11/20/15 Losartan Potassium 100 mg PO DAILY 11/20/15 Memantine HCl [Namenda] 10 mg PO BID 11/20/15 Tiotropium [place] Monohydrate [Spiriva Handihaler] 18 mcg IN DAILY 11/20/15 Albuterol Sulfate [Proair Hfa] 1 puff PO PRN PRN 09/04/18 Metoprolol Tartrate 12.5 mg PO DAILY 09/04/18 Phenytoin Sodium Extended 300 mg PO DAILY 09/04/18 Rivaroxaban [Xarelto] 20 mg PO DAILY 09/04/18 Rosuvastatin Calcium 20 mg PO DAILY 09/04/18 Memantine HCl [Namenda] 10 mg PO DAILY 09/18/18 Additional Instructions: Need to take OVER THE COUNTER MEDICATIONS:MAG-OX 2 TABLETS 3 X A DAY;VITAMIN D 5000 units daily;Continue with rest of home medications ;Keep appointment with primary Md;Return to Emergency Room as needed
[2018-09-18] MEDS ORDERED: CHLORHEXIDINE GLUCONATE 4 % 15 ML UD TOP ONE (20:21)
[2018-09-18 20:25] VITALS: TEMP 98.7
[2018-09-18] MEDS ORDERED: TETANUS,DIPHTHERIA,PERTUSSIS 1 EA SYG IM ONE (20:58)
[2018-09-18 20:59] VITALS: O2SAT 95
--- NOTE | 2018-09-18 21:04 | RAD ---
EXAM DESCRIPTION: Elbow,Right 2 Views CLINICAL HISTORY: 77 years Male laceration COMPARISON: None TECHNIQUE: Two images of the right elbow were obtained. FINDINGS: No fracture seen. No evidence for joint effusion. Normal bony mineralization. No erosive or lytic lesions seen. IMPRESSION: No fracture or dislocation seen. Electronically signed by: Deanna Ramirez MD 09/18/2018 9:01 PM CDT
[2018-09-18] MEDS ORDERED: MAGNESIUM SULFATE PREMIX 2GM 2 GM in PREMIX BAG 1 BAG IVPB ONE (21:10)
[2018-09-18] MEDS ORDERED: MAGNESIUM SULFATE PREMIX 2GM 50 ML IVPB ONE (21:15)
--- NOTE | 2018-09-18 21:21 | CT ---
EXAM: Head CLINICAL INDICATION: 77-year-old male, passed out. COMPARISON: MRI brain 03/07/2015. TECHNIQUE: CT brain without contrast. This exam was performed according to our departmental dose optimization program which includes use of automated exposure control, adjustment of the mA and/or kV according to patient size and/or use of iterative reconstruction technique. FINDINGS: Multifocal regions of patchy hypoattenuation are present in a subcortical and periventricular deep white matter distribution, nonspecific; however, most likely represent small vessel ischemic disease, age indeterminate. Subcentimeter hypoattenuation within the bilateral basal ganglia stable in comparison to the previous examination compatible with sequela of prior infarction. The ventricles, and sulci are enlarged compatible with underlying volume loss. The [place]-white matter differentiation is preserved. There is no mass effect, midline shift, intra- or extra-axial fluid collection/acute hemorrhage. The osseous structures are unremarkable. The paranasal sinuses and mastoid air cells are clear. IMPRESSION: 1. No acute intracranial abnormalities. Nonspecific white matter change most likely small vessel ischemic disease, age indeterminate. 2. CT is insensitive for early evaluation of acute stroke. If there is clinical concern for acute ischemia, an MRI may be considered. Electronically signed by: Romelia Mahoney MD 09/18/2018 9:19 PM CDT
[2018-09-18 21:50] VITALS: BP 187/89
== END 2018-09-18 22:12 | disposition home or self-care (01) ==
LOC: ER 20:12
DX: S51.011A Laceration without foreign body of right elbow, initial encounter (principal); E83.51 Hypocalcemia; E83.42 Hypomagnesemia; I45.10 Unspecified right bundle-branch block; R56.9 Unspecified convulsions; F03.90 Unspecified dementia, unspecified severity, without behavioral disturbance, psychotic disturbance, mood disturbance, and anxiety; J44.9 Chronic obstructive pulmonary disease, unspecified; I10 Essential (primary) hypertension; Z87.891 Personal history of nicotine dependence; Z79.899 Other long term (current) drug therapy; Z79.82 Long term (current) use of aspirin; W18.39XA Other fall on same level, initial encounter; Y92.89 Other specified places as the place of occurrence of the external cause
CPT/HCPCS: 36415; 70450; 73070; 80048; 80076; 80185; 82550; 82553; 84484; 85025; 85610; 85730; 90471; 90715; 93005; J3475

== ENCOUNTER → 2018-10-13 | Outpatient (CLI) | payer MEDICARE, BC | LOC: GMAM 10:09 | PROVIDERS: ATTEND Family Medicine | DX: R61 Generalized hyperhidrosis (principal) ==

== ENCOUNTER 2019-01-25 15:38 | Emergency (ER) | payer MEDICARE, BC ==
[2019-01-25] MEDS ORDERED: IPRATROPIUM/ALBUTEROL 3 ML VIAL NEB ONE ×4 (15:52→18:25)
[2019-01-25] MEDS ORDERED: CHLORHEXIDINE GLUCONATE 4 % 15 ML UD TOP ONE (16:13)
[2019-01-25] MEDS ORDERED: methylPREDNISolone SODIUM SUC 125 MG/2 ML VIAL IV ONE (16:19)
[2019-01-25] MEDS ORDERED: SODIUM CHLORIDE 0.9% 1000ML 1,000 ML IVS ONE (16:33)
[2019-01-25] MEDS ORDERED: SODIUM CHLORIDE 0.9% (FLUSH) 10 ML SYG IV PRN (16:33)
[2019-01-25] MEDS ORDERED: CEFEPIME 2 GM in SODIUM CHL 0.9% 50ML MIN-BAG+ 50 ML IVPB ONE (16:34)
--- NOTE | 2019-01-25 16:38 | ED.PDOC ---
History of Present Illness - General Chief Complaint: Respiratory Problem Stated Complaint: trouble breathing,decreased sats Time Seen by Provider: 01/25/19 15:40 - History of Present Illness Initial Comments: 78 yo M with PMH sig for COPD who presents from [employer] for hypoxia in the mid 80's, not on home oxygen, normal oxygen is around 92% on RA per . endorses over the past 3 days worsening SOB, TIWARI, wheezing, cough productive of sputum. Complaint with breathing treatments. states pt has short term memory loss and dementia, cannot contribute to the hx. denies f/c, denies him complaining of any CP, abd pain, she has not noticed any edema. Denies hx of CHF. Pt on the transfer here from [employer] accidentally fell out of the wheelchair sustaining abrasions and skin tears to knees and BUE. No head trauma, LOC. Pt is not on any anticoagulation. UTD on tetanus. Pt himself denies any pain anywhere, reports current SOB. Allergies/Adverse Reactions: Allergies NO KNOWN ALLERGY Allergy (Verified 09/04/18 02:26) Home Medications: Ambulatory Orders Albuterol Sulfate Nebs [Proventil Nebs] 2.5 mg INH PRN PRN 11/20/15 Losartan Potassium 100 mg PO DAILY 11/20/15 Memantine HCl [Namenda] 10 mg PO BID 11/20/15 Tiotropium [place] Monohydrate [Spiriva Handihaler] 18 mcg IN BID 11/20/15 Albuterol Sulfate [Proair Hfa] 1 puff PO PRN PRN 09/04/18 Metoprolol Tartrate 25 mg PO DAILY 09/04/18 Rivaroxaban [Xarelto] 20 mg PO DAILY 09/04/18 Rosuvastatin Calcium 20 mg PO DAILY 09/04/18 Albuterol Sulfate [Proair Hfa] 2 puff INH DAILY 01/25/19 Donepezil Hydrochloride [Aricept] 10 mg PO DAILY 01/25/19 Mepolizumab [Nucala] 100 mg SC MONTHLY 01/25/19 Mometasone Furoate-Formoterol [Dulera 100-5 Mcg/Act] 2 puff PO BID 01/25/19 Montelukast [Singulair] 10 mg PO DAILY 01/25/19 Maceo-3 Fatty Acids [Fish Oil] 1 cap PO DAILY 01/25/19 Review of Systems - Review of Systems Constitutional: Denies: chills, fever Respiratory: States: cough, short of breath, wheezing Cardiology: Denies: chest pain, edema Gastrointestinal/Abdominal: Denies: abdominal pain, nausea, vomiting Skin: States: other - +wound Neurological: Denies: headache, numbness, weakness Unable to Obtain Due To: dementia Past Medical History (General) - Patient Medical History Hx Seizures: Yes Hx Stroke: No Hx Dementia: Yes Hx Asthma: No Hx of COPD: Yes Hx Cardiac Disorders: No Hx Congestive Heart Failure: No Hx Pacemaker: No Hx Hypertension: Yes Hx Diabetes: No Hx MRSA: No - Vaccination History Hx Tetanus, Diphtheria Vaccination: Yes - greater then 5-10 years Hx Influenza Vaccination: Yes Hx Pneumococcal Vaccination: Yes - Social History Hx Tobacco Use: Yes Hx Alcohol Use: No Hx Substance Use: No Hx Physical Abuse: No Hx Emotional Abuse: No Family Medical History - Family History Father Family History: Unknown Hx Cardiac Disease: Yes - dad Hx Family;Other: Mental problem-mom;Brothers-Alzheimers disease Physical Exam - Physical Exam General Appearance: Alert, Well Developed, Well Nourished Eye Exam: bilateral normal Ears, Nose, Throat: other - No pharyngeal erythema, no exudate. Mild dry mucous membranes. Neck: non-tender, full range of motion, supple Respiratory: respiratory distress, decreased breath sounds, accessory muscle use, wheezing, other - Breathing through pursed lips. Cardiovascular/Chest: normal peripheral pulses, regular rate, rhythm, no edema, no gallop, no JVD, no murmur Gastrointestinal/Abdominal: non tender, soft, no organomegaly, no pulsatile mass, other - No distention, guarding, rebound. Back Exam: no CVA tenderness, no vertebral tenderness, other - No midline C/T/L spine TTP, step off's, deformities, crepitus, ecchymosis. Extremity: normal range of motion, non-tender, other - Full ROM all extremities. No deformity, TTP, swelling. NVID, 2+ pulses, cap refill <2sec. Neurologic: child specialist II-XII nml as tested, no motor/sensory deficits, alert Skin Exam: warm/dry, other - No cyanosis. Abrasion bilatera knees. Skin tears R and L hand, LUE. No active bleeding. Progress - Progress Progress: 01/25/19 16:37 Sepsis activated, will give 1L bolus but hold on entire sepsis fluid requirement until lactate resulted, will give cefepime. Pt still with tachypnea and accessory muscle use despite duoneb, will give another treatment and start on bipap. ABG pending. 01/25/19 17:55 Pt doing well on bipap, ABG reviewed. RR at 18 at this time. 01/25/19 18:00 Will trail pt off of bipap. 01/25/19 18:20 Discussed with RT and evaluated the pt, well appearing, no tachypnea, minimal intermittent wheeze. Will give another duoneb and plan to admit for COPD exacerbation. 01/25/19 18:35 Discussed with pt and family need for admission, agree with plan of care. All questions and concerns addressed. Pt well appearing, no resp distress, no tachypnea. 01/25/19 18:40 Discussed with midlevel, [facility], accepts pt for admission. 01/25/19 18:45 Updated pt, now breathing through pursed lips, wheezing increased, will place back on bipap. Discussed with [facility], will transfer. 01/25/19 18:[address] Borjas, [facility]. Accepts pt for transfer. Claudia Tsai MD Emergency Medicine Physician Billing Number [id number] 01/25/19 19:20 - Results/Orders Results/Orders: 01/25/19 16:20 BiPAP/CPAP Treatment DAILY 01/25/19 16:30 EKG STAT 01/25/19 16:33 Sodium Chloride 0.9% (Flush) [Saline Flush Syringe] 10 ml IV PRN PRN 01/25/19 16:34 Telemetry .ONCE Pulse Ox Stat Pulse Oximetry Assessment DAILY 01/25/19 17:00 BLOOD CULTURE Stat 01/25/19 17:29 EKG .ONCE 01/25/19 18:39 ED Intent to Admit Routine 01/25/19 19:05 LACTIC ACID Q2H 01/25/19 20:45 LACTIC ACID Q2H 01/25/19 22:45 LACTIC ACID Q2H 01/26/19 00:45 LACTIC ACID Q2H 01/26/19 02:45 LACTIC ACID Q2H 01/26/19 04:45 LACTIC ACID Q2H 01/26/19 06:45 LACTIC ACID Q2H 01/26/19 08:45 LACTIC ACID Q2H 01/26/19 09:00 BiPAP Daily 01/26/19 10:45 LACTIC ACID Q2H 01/26/19 12:45 LACTIC ACID Q2H 01/26/19 14:45 LACTIC ACID Q2H Laboratory Results - last 24 hr 01/25/19 01/25/19 01/25/19 16:20 17:00 17:00 WBC 9.5 RBC 4.76 Hgb 14.3 Hct 42.9 MCV 90.2 MCH 30.0 MCHC 33.2 RDW 13.3 Plt Count 312 MPV 7.6 Absolute Neuts (auto) 6.30 Absolute Lymphs (auto) 1.80 Absolute Monos (auto) 1.20 H Absolute Eos (auto) 0.10 Absolute Basos (auto) 0.10 Neutrophils % 66.0 Lymphocytes % 19.5 L Monocytes % 13.0 H Eosinophils % 0.8 L Basophils % 0.7 pCO2 41 pO2 73 L HCO3 26.0 ABG pH 7.420 ABG O2 Saturation 95.7 ABG Base Excess 1.9 ABG Deoxyhemoglobin 4.2 Oxyhemoglobin % 94.4 Carboxyhemoglobin % -0.1 L Methemoglobin % Sat 1.4 Calc Total Hemoglobin 13.0 L Sodium 136 Potassium 3.6 Chloride 99 L Carbon Dioxide 24 Anion Gap 16.6 BUN 18 Creatinine 0.92 BUN/Creatinine Ratio 19.6 Random Glucose 126 H Serum Osmolality 275.4 Lactic Acid Calcium 9.0 Total Bilirubin 0.2 AST 29 ALT 22 Alkaline Phosphatase 46 Troponin I Serum Total Protein 7.0 Albumin 4.1 Globulin 2.9 Albumin/Globulin Ratio 1.4 01/25/19 01/25/19 17:00 17:00 WBC RBC Hgb Hct MCV MCH MCHC RDW Plt Count MPV Absolute Neuts (auto) Absolute Lymphs (auto) Absolute Monos (auto) Absolute Eos (auto) Absolute Basos (auto) Neutrophils % Lymphocytes % Monocytes % Eosinophils % Basophils % pCO2 pO2 HCO3 ABG pH ABG O2 Saturation ABG Base Excess ABG Deoxyhemoglobin Oxyhemoglobin % Carboxyhemoglobin % Methemoglobin % Sat Calc Total Hemoglobin Sodium Potassium Chloride Carbon Dioxide Anion Gap BUN Creatinine BUN/Creatinine Ratio Random Glucose Serum Osmolality Lactic Acid 1.3 Calcium Total Bilirubin AST ALT Alkaline Phosphatase Troponin I 0.02 Serum Total Protein Albumin Globulin Albumin/Globulin Ratio CXR: IMPRESSION: Chronic changes as above. No acute disease. Electronically signed by: Yamini Sanchez MD 01/25/2019 4:54 PM - EKG/XRAY/CT EKG: RBBB - Incomplete Comments: NSR, Rate 83, First degree AV block, Right superior [place], Normal ST/T waves Departure - Departure Clinical Impression: COPD with exacerbation Respiratory failure Qualifiers: Chronicity: acute on chronic Respiratory failure complication: hypoxia Qualified Code(s): J96.21 - Acute and chronic respiratory failure with hypoxia Time of Disposition: 18:38 Disposition: Transfer to Hospital Condition: Fair Referrals: Rick Nguyen MD [Primary Care Provider] - 1-2 Weeks Home Medications: Ambulatory Orders Albuterol Sulfate Nebs [Proventil Nebs] 2.5 mg INH PRN PRN 11/20/15 Losartan Potassium 100 mg PO DAILY 11/20/15 Memantine HCl [Namenda] 10 mg PO BID 11/20/15 Tiotropium [place] Monohydrate [Spiriva Handihaler] 18 mcg IN BID 11/20/15 Albuterol Sulfate [Proair Hfa] 1 puff PO PRN PRN 09/04/18 Metoprolol Tartrate 25 mg PO DAILY 09/04/18 Rivaroxaban [Xarelto] 20 mg PO DAILY 09/04/18 Rosuvastatin Calcium 20 mg PO DAILY 09/04/18 Albuterol Sulfate [Proair Hfa] 2 puff INH DAILY 01/25/19 Donepezil Hydrochloride [Aricept] 10 mg PO DAILY 01/25/19 Mepolizumab [Nucala] 100 mg SC MONTHLY 01/25/19 Mometasone Furoate-Formoterol [Dulera 100-5 Mcg/Act] 2 puff PO BID 01/25/19 Montelukast [Singulair] 10 mg PO DAILY 01/25/19 Maceo-3 Fatty Acids [Fish Oil] 1 cap PO DAILY 01/25/19
[2019-01-25] MEDS ORDERED: CEFEPIME 2 GM VIAL ONE (16:48)
[2019-01-25] MEDS ORDERED: SODIUM CHL 0.9% 50ML MIN-BAG+ 50 ML IVPB ONE (16:48)
--- NOTE | 2019-01-25 16:56 | RAD ---
EXAM: XR Chest, 1 View CLINICAL HISTORY: SOB TECHNIQUE: Frontal view of the chest. COMPARISON: 09/05/2018. FINDINGS: Limitations: None. Lungs: Mild basilar scarring present. Pleural space: Unremarkable. No pneumothorax. Heart: Stable cardiac shadow. Mediastinum: Unremarkable. Bones/joints: Unremarkable. Vasculature: Stable aortic tortuosity. IMPRESSION: Chronic changes as above. No acute disease. Electronically signed by: Yamini Sanchez MD 01/25/2019 4:54 PM CDT
[2019-01-25 18:39] VITALS: TEMP 97.9
[2019-01-25 19:35] VITALS: O2SAT 95
[2019-01-25 20:21] VITALS: BP 146/75
== END 2019-01-25 20:44 | disposition short-term general hospital (02) ==
LOC: ER 15:38
DX: J96.21 Acute and chronic respiratory failure with hypoxia (principal); J44.1 Chronic obstructive pulmonary disease with (acute) exacerbation; I44.0 Atrioventricular block, first degree; I45.10 Unspecified right bundle-branch block; S41.112A Laceration without foreign body of left upper arm, initial encounter; S61.412A Laceration without foreign body of left hand, initial encounter; S61.411A Laceration without foreign body of right hand, initial encounter; S80.812A Abrasion, left lower leg, initial encounter; S80.811A Abrasion, right lower leg, initial encounter; R56.9 Unspecified convulsions; F03.90 Unspecified dementia, unspecified severity, without behavioral disturbance, psychotic disturbance, mood disturbance, and anxiety; I10 Essential (primary) hypertension; Z87.891 Personal history of nicotine dependence; Z79.899 Other long term (current) drug therapy; W05.0XXA Fall from non-moving wheelchair, initial encounter; Y92.9 Unspecified place or not applicable
CPT/HCPCS: 36415; 36600; 71045; 80053; 82803; 82805; 83605; 84484; 85025; 87040; 93005; 94640; 94660; J0692; J2930; J7030; J7050; J7620

== ENCOUNTER → 2019-02-03 | Outpatient (CLI) | payer MEDICARE, BC | LOC: GMAM 17:22 | PROVIDERS: ATTEND Family Medicine | DX: J44.1 Chronic obstructive pulmonary disease with (acute) exacerbation (principal); R06.02 Shortness of breath ==

== ENCOUNTER → 2019-02-08 | Outpatient (CLI) | payer MEDICARE, BC | LOC: NC 16:41 | PROVIDERS: ATTEND Family Medicine | DX: E61.2 Magnesium deficiency (principal); J44.1 Chronic obstructive pulmonary disease with (acute) exacerbation; I10 Essential (primary) hypertension; I48.2 Chronic atrial fibrillation ==

== ENCOUNTER → 2019-02-18 | Outpatient (CLI) | payer MEDICARE, BC | LOC: GMAM 16:55 | PROVIDERS: ATTEND Family Medicine | DX: E83.42 Hypomagnesemia (principal) ==

== ENCOUNTER → 2019-02-24 | Outpatient (CLI) | payer MEDICARE, BC | LOC: NC 14:36 | PROVIDERS: ATTEND Family Medicine | DX: E61.2 Magnesium deficiency (principal) ==

== ENCOUNTER → 2019-03-25 | Outpatient (CLI) | payer MEDICARE, BC | LOC: NC 09:27 | PROVIDERS: ATTEND Family Medicine | DX: I48.20 Chronic atrial fibrillation, unspecified (principal); I10 Essential (primary) hypertension; E78.00 Pure hypercholesterolemia, unspecified; E83.42 Hypomagnesemia; I50.9 Heart failure, unspecified ==

== ENCOUNTER → 2019-04-05 | Outpatient (CLI) | payer MEDICARE, BC | LOC: GMAM 16:47 | PROVIDERS: ATTEND Family Medicine | DX: E83.42 Hypomagnesemia (principal) ==

== ENCOUNTER → 2019-04-09 | Outpatient (CLI) | payer MEDICARE, BC | LOC: GMAF 12:29 | PROVIDERS: ATTEND Nurse Practitioner Family | DX: I48.20 Chronic atrial fibrillation, unspecified (principal) ==

== ENCOUNTER → 2019-04-12 | Outpatient (CLI) | payer MEDICARE, BC | LOC: NC 12:47 | PROVIDERS: ATTEND Family Medicine | DX: I48.20 Chronic atrial fibrillation, unspecified (principal); I50.20 Unspecified systolic (congestive) heart failure ==

== ENCOUNTER → 2019-05-14 | Outpatient (CLI) | payer MEDICARE, BC | LOC: GMAM 11:45 | PROVIDERS: ATTEND Family Medicine | DX: E83.42 Hypomagnesemia (principal) ==

== ENCOUNTER → 2019-05-18 | Outpatient (CLI) | payer MEDICARE, BC | LOC: GMAM 16:48 | PROVIDERS: ATTEND Family Medicine | DX: E83.42 Hypomagnesemia (principal) ==

== ENCOUNTER → 2019-07-13 | Outpatient (CLI) | payer MEDICARE, BC ==
[2019-07-14] MEDS: SODIUM CHLORIDE 0.9% IVPB ONE (17:04)
[2019-07-14] MEDS: MAGNESIUM SULFATE IVPB ONE (17:04)
[2019-07-14 18:11] VITALS: BP 154/72; TEMP 98.4; O2SAT 98
== END ==
LOC: INFRM 16:36
PROVIDERS: ATTEND Family Medicine
DX: E83.42 Hypomagnesemia (principal)
CPT/HCPCS: 83735; 96365; A4216; J3475

== ENCOUNTER → 2019-09-21 | Outpatient (CLI) | payer MEDICARE, BC | LOC: NC 13:09 | PROVIDERS: ATTEND Family Medicine | DX: I48.20 Chronic atrial fibrillation, unspecified (principal); I10 Essential (primary) hypertension; E78.00 Pure hypercholesterolemia, unspecified; I50.20 Unspecified systolic (congestive) heart failure ==

== ENCOUNTER 2019-09-26 08:16 | Emergency (ER) | payer MEDICARE, BC ==
[2019-09-26] MEDS ORDERED: TRANEXAMIC ACID 1,000 MG/10 ML VIAL ONE (08:33)
--- NOTE | 2019-09-26 09:02 | ED.PDOC ---
History of Present Illness - General Chief Complaint: Skin/Abrasion/Tear Stated Complaint: skin tear to arm Time Seen by Provider: 09/26/19 08:59 - History of Present Illness Initial Comments: 78-year-old male presents with ongoing venous bleeding for 24 hours from skin tear, reportedly made worse last night when he got up and scrubbed it with some type of rag. Patient suffers from dementia, presents here with his . Home health care nurse was initially called the provided wound treatment, although it has continued to bleed through the dressings. Patient takes NOAC for stroke risk management Allergies/Adverse Reactions: Allergies NO KNOWN ALLERGY Allergy (Verified 09/04/18 02:26) Home Medications: Ambulatory Orders Albuterol Sulfate Nebs [Proventil Nebs] 2.5 mg INH PRN PRN 11/20/15 Losartan Potassium 50 mg PO DAILY 11/20/15 Memantine HCl [Namenda] 10 mg PO BID 11/20/15 Tiotropium [place] Monohydrate [Spiriva Handihaler] 18 mcg IN BID 11/20/15 Metoprolol Tartrate 25 mg PO BID 09/04/18 Rivaroxaban [Xarelto] 20 mg PO BEDTIME 09/04/18 Rosuvastatin Calcium 20 mg PO DAILY 09/04/18 Albuterol Sulfate [Proair Hfa] 2 puff INH DAILY 01/25/19 Donepezil Hydrochloride [Aricept] 10 mg PO DAILY 01/25/19 Montelukast [Singulair] 10 mg PO DAILY 01/25/19 [place]-3 Fatty Acids [Fish Oil] 1 cap PO DAILY 01/25/19 Arformoterol Tartrate [Brovana] 15 mcg IN DAILY 09/26/19 Furosemide [Lasix] 20 mg PO DAILY 09/26/19 Furosemide [Lasix] 20 mg PO PRN 09/26/19 Magnesium 500 mg PO BID 09/26/19 Metolazone 2.5 mg PO PRN 09/26/19 Potassium Chloride [K-Tab] 8 meq PO BID 09/26/19 levETIRAcetam TABLETS [Keppra] 250 mg PO DAILY 09/26/19 Review of Systems - Review of Systems Review of Systems: 09/26/19 09:00 General: Denies generalized weakness, fever, arthralgia/myalgia HEENT: Denies sore throat, rhinorrhea Cardiovascular: Denies chest pain, palpitations Respiratory: Denies SOB, cough Gastrointestinal: Denies abdominal pain, vomiting, diarrhea : Denies dysuria, frequency Musculoskeletal: Denies extremity pain, extremity swelling Integument: Denies rash, itching, but has tear as in HPI Neuro: Denies focal weakness or numbness Psych: Denies depression, hallucinations. Past Medical History (General) - Patient Medical History Hx Seizures: Yes Hx Stroke: No Hx Dementia: Yes Hx Asthma: No Hx of COPD: Yes Hx Cardiac Disorders: No Hx Congestive Heart Failure: No Hx Pacemaker: No Hx Hypertension: Yes Hx Diabetes: No Hx Cancer: No Hx MRSA: No - Vaccination History Hx Tetanus, Diphtheria Vaccination: Yes Hx Influenza Vaccination: Yes Hx Pneumococcal Vaccination: Yes - Social History Hx Tobacco Use: Yes Hx Alcohol Use: Yes Hx Substance Use: No Hx Physical Abuse: No Hx Emotional Abuse: No Family Medical History - Family History Father Family History: Unknown Hx Cardiac Disease: Yes - dad Hx Family;Other: Mental problem-mom;Brothers-Alzheimers disease Physical Exam - Physical Exam Comments: General Appearance: Patient is awake and alert. Skin: Warm and dry. No diaphoresis. two large skin tears with surrounding ecchymosis, ongoing venous bleeding from lateral edge of wound. Head: Normocephalic/atraumatic. Eyes: PERRL, lids, conjunctiva and sclera unremarkable. EOMI intact. ENT: No nasal discharge. Oropharynx. Without erythema, exudate, lesions. Moist mucous membranes. Neck: Supple. No LAD. No tenderness. No JVD noted. Respiratory: Normal rate and effort. Breath sounds clear bilaterally. Cardiovascular: Regular rate. Heart sounds normal. No murmur. GI: Abdomen soft, non-distended and non-tender. No rebound/guarding. Bowel sounds normal. Back: No tenderness Musculoskeletal: Extremities- Normal range of motion. No effusion, cyanosis, edema. Neurological: Alert. No facial palsy. Speech clear. Gag intact. No motor deficit, str symmetric. No sensory deficit. Progress - Progress Progress: 09/26/19 09:03 application of TXA solution to surgicell to improvise hemostatic dressing applied directly to the wound, re-applied pressure dressing. will plan screening labs, monitor. 09/26/19 09:25 wound appears hemostatic on recheck. redressed wound. Safety Stop VS, exam remain reassuring. Labs are without acute abnormality. I have discussed findings, diff dx, plan of care, need for follow-up, and reasons to return to the ED. Safety Stop (Diagnostic Time-Out): Tachycardia: No Diagnostic Studies: Reviewed Diagnostic Certainty: moderate Patient/family feels safe with discharge: Yes Vital Signs - 24 hr 09/26/19 09/26/19 08:34 08:59 Temperature 96.1 F L Pulse Rate [ 108 H 108 H Right Brachial] Respiratory 26 H 26 H Rate Blood Pressure 156/90 [Right Arm] O2 Sat by Pulse 96 Oximetry - Results/Orders Results/Orders: Laboratory Results WBC 15.3 K/mm3 (4.8-10.8) H 09/26/19 08:57 RBC 4.10 M/mm3 (4.70-6.10) L 09/26/19 08:57 Hgb 12.6 gm/dL (14.0-18.0) L 09/26/19 08:57 Hct 37.1 % (42.0-52.0) L 09/26/19 08:57 MCV 90.4 fl (80.0-94.0) 09/26/19 08:57 MCH 30.8 pg (27.0-31.0) 09/26/19 08:57 MCHC 34.0 g/dL (33.0-37.0) 09/26/19 08:57 RDW 13.4 % (11.5-14.5) 09/26/19 08:57 Plt Count 294 K/mm3 (130-400) 09/26/19 08:57 MPV 8.2 fl (7.40-10.4) 09/26/19 08:57 Absolute Neuts (auto) 10.20 K/uL (1.8-6.8) H 09/26/19 08:57 Absolute Lymphs (auto) 3.30 K/uL (1.0-3.4) 09/26/19 08:57 Absolute Monos (auto) 1.70 K/uL (0.2-0.8) H 09/26/19 08:57 Absolute Eos (auto) 0.20 K/uL (0.0-0.4) 09/26/19 08:57 Absolute Basos (auto) 0.00 K/uL (0.0-0.1) 09/26/19 08:57 Neutrophils % 66.4 % (42.0-78.0) 09/26/19 08:57 Lymphocytes % 21.3 % (20.0-50.0) 09/26/19 08:57 Monocytes % 10.8 % (2.0-9.0) H 09/26/19 08:57 Eosinophils % 1.2 % (1.0-5.0) 09/26/19 08:57 Basophils % 0.3 % (0.0-2.0) 09/26/19 08:57 PT 13.8 SECONDS (9.0-10.9) H 09/26/19 08:57 INR 1.39 (0.9-1.15) H 09/26/19 08:57 PTT (SP) 31.8 SECONDS (21.8-31.6) H 09/26/19 08:57 Sodium 133 mmol/L (135-145) L 09/26/19 08:57 Potassium 3.6 mmol/L (3.6-5.0) 09/26/19 08:57 Chloride 95 mmol/L (101-111) L 09/26/19 08:57 Carbon Dioxide 26 mmol/L (21-31) 09/26/19 08:57 Anion Gap 15.6 (12-18) 09/26/19 08:57 BUN 24 mg/dL (7-18) H 09/26/19 08:57 Creatinine 1.34 mg/dL (0.6-1.3) H 09/26/19 08:57 BUN/Creatinine Ratio 17.9 (10-20) 09/26/19 08:57 Random Glucose 157 mg/dL (70-105) H 09/26/19 08:57 Serum Osmolality 273.7 mOsm/L (275-295) L 09/26/19 08:57 Calcium 9.2 mg/dL (8.4-10.2) 09/26/19 08:57 Total Bilirubin 0.7 mg/dL (0.2-1.0) 09/26/19 08:57 AST 25 IU/L (10-42) 09/26/19 08:57 ALT 21 IU/L (10-60) 09/26/19 08:57 Alkaline Phosphatase 36 IU/L (42-121) L 09/26/19 08:57 Serum Total Protein 6.5 gm/dL (6.4-8.2) 09/26/19 08:57 Albumin 3.8 g/dl (3.2-5.5) 09/26/19 08:57 Globulin 2.7 gm/dL (2.3-3.5) 09/26/19 08:57 Albumin/Globulin Ratio 1.4 (1.1-1.9) 09/26/19 08:57 Departure - Departure Clinical Impression: Laceration Time of Disposition: 09:30 Disposition: Discharge to Home or Self Care Condition: Good Departure Forms: ED Discharge - Pt. Copy, Patient Portal Self Enrollment Instructions: DI for Abrasion Diet: resume usual diet Activity: increase activity as tolerated Referrals: Rick Nguyen MD [Primary Care Provider] - 1-2 Days Home Medications: Ambulatory Orders Albuterol Sulfate Nebs [Proventil Nebs] 2.5 mg INH PRN PRN 11/20/15 Losartan Potassium 50 mg PO DAILY 11/20/15 Memantine HCl [Namenda] 10 mg PO BID 11/20/15 Tiotropium [place] Monohydrate [Spiriva Handihaler] 18 mcg IN BID 11/20/15 Metoprolol Tartrate 25 mg PO BID 09/04/18 Rivaroxaban [Xarelto] 20 mg PO BEDTIME 09/04/18 Rosuvastatin Calcium 20 mg PO DAILY 09/04/18 Albuterol Sulfate [Proair Hfa] 2 puff INH DAILY 01/25/19 Donepezil Hydrochloride [Aricept] 10 mg PO DAILY 01/25/19 Montelukast [Singulair] 10 mg PO DAILY 01/25/19 [place]-3 Fatty Acids [Fish Oil] 1 cap PO DAILY 01/25/19 Arformoterol Tartrate [Brovana] 15 mcg IN DAILY 09/26/19 Furosemide [Lasix] 20 mg PO DAILY 09/26/19 Furosemide [Lasix] 20 mg PO PRN 09/26/19 Magnesium 500 mg PO BID 09/26/19 Metolazone 2.5 mg PO PRN 09/26/19 Potassium Chloride [K-Tab] 8 meq PO BID 09/26/19 levETIRAcetam TABLETS [Keppra] 250 mg PO DAILY 09/26/19 Additional Instructions: leave dressing in place today, have home health care nurse visit tomorrow for wound check. Comments: Marek Deal MD Emergency Medicine #[id number]
[2019-09-26 09:54] VITALS: BP 124/72; TEMP 96.9; O2SAT 94
== END 2019-09-26 09:45 | disposition home or self-care (01) ==
LOC: ER 08:16
DX: S41.111A Laceration without foreign body of right upper arm, initial encounter (principal); F03.90 Unspecified dementia, unspecified severity, without behavioral disturbance, psychotic disturbance, mood disturbance, and anxiety; J44.9 Chronic obstructive pulmonary disease, unspecified; I10 Essential (primary) hypertension; Z79.899 Other long term (current) drug therapy; Z87.891 Personal history of nicotine dependence; Z79.01 Long term (current) use of anticoagulants; X58.XXXA Exposure to other specified factors, initial encounter; Y92.009 Unspecified place in unspecified non-institutional (private) residence as the place of occurrence of the external cause

== ENCOUNTER 2019-09-29 16:24 | Emergency (ER) | payer MEDICARE, BC ==
--- NOTE | 2019-09-29 16:40 | ED.PDOC ---
History of Present Illness - General Stated Complaint: wound infection Time Seen by Provider: 09/29/19 16:25 Source: patient, family Exam Limitations: no limitations - History of Present Illness Initial Comments: 78 y/o white male here for evaluation of skin tear to his L forearm. 4 days ago he fell in his bedroom and was treated here. He has been off his blood thinner but will start back tomorrow. His [facility] nurse had sent a picture to his PCP and instructed him to present here to the ER for evaluation and initiation of antibiotic therapy. He denies fever. Timing/Duration: week Severity: moderate Location: extremities Allergies/Adverse Reactions: Allergies NO KNOWN ALLERGY Allergy (Verified 09/29/19 16:49) Home Medications: Ambulatory Orders Albuterol Sulfate Nebs [Proventil Nebs] 2.5 mg INH PRN PRN 11/20/15 Losartan Potassium 50 mg PO DAILY 11/20/15 Memantine HCl [Namenda] 10 mg PO BID 11/20/15 Tiotropium [place] Monohydrate [Spiriva Handihaler] 18 mcg IN BID 11/20/15 Metoprolol Tartrate 25 mg PO BID 09/04/18 Rivaroxaban [Xarelto] 20 mg PO BEDTIME 09/04/18 Rosuvastatin Calcium 20 mg PO DAILY 09/04/18 Albuterol Sulfate [Proair Hfa] 2 puff INH DAILY 01/25/19 Donepezil Hydrochloride [Aricept] 10 mg PO DAILY 01/25/19 Montelukast [Singulair] 10 mg PO DAILY 01/25/19 [place]-3 Fatty Acids [Fish Oil] 1 cap PO DAILY 01/25/19 Arformoterol Tartrate [Brovana] 15 mcg IN DAILY 09/26/19 Furosemide [Lasix] 20 mg PO DAILY 09/26/19 Furosemide [Lasix] 20 mg PO PRN 09/26/19 Magnesium 500 mg PO BID 09/26/19 Metolazone 2.5 mg PO PRN 09/26/19 Potassium Chloride [K-Tab] 8 meq PO BID 09/26/19 levETIRAcetam TABLETS [Keppra] 250 mg PO DAILY 09/26/19 Sulfamethoxazole-Trimethoprim [Bactrim Ds 800-160 mg] 1 tab PO BID #14 tab 09/29/19 Review of Systems - Review of Systems Constitutional: States: no symptoms reported Respiratory: States: no symptoms reported Cardiology: States: no symptoms reported Skin: States: other - skin tear Past Medical History (General) - Patient Medical History Hx Seizures: Yes Hx Stroke: No Hx Dementia: Yes Hx Asthma: No Hx of COPD: Yes Hx Cardiac Disorders: No Hx Congestive Heart Failure: No Hx Pacemaker: No Hx Hypertension: Yes Hx Diabetes: No Hx Cancer: No Hx MRSA: No - Vaccination History Hx Tetanus, Diphtheria Vaccination: Yes Hx Influenza Vaccination: Yes Hx Pneumococcal Vaccination: Yes - Social History Hx Tobacco Use: Yes Hx Alcohol Use: Yes Hx Substance Use: No Hx Physical Abuse: No Hx Emotional Abuse: No Family Medical History - Family History Father Family History: Unknown Hx Cardiac Disease: Yes - dad Hx Family;Other: Mental problem-mom;Brothers-Alzheimers disease Physical Exam - Physical Exam General Appearance: Alert, Comfortable Eyes, Ears, Nose, Throat Exam: normal ENT inspection Neck: full range of motion, supple Respiratory: no respiratory distress, respiratory distress Gastrointestinal/Abdominal: normal bowel sounds Extremity: other - large skin tear to L forearm. Some debridement necessary because the tissue is not healing to the underlying layer. Progress - Progress Progress: 09/29/19 16:48 carefully cleaned and debrided devitalized tissue, dressed Departure - Departure Clinical Impression: Encounter for re-check of laceration wound Disposition: Discharge to Home or Self Care Condition: Fair Instructions: DI for Wound Infection Referrals: Rick Nguyen MD [Primary Care Provider] - 1-2 Weeks Prescriptions: Sulfamethoxazole-Trimethoprim [Bactrim Ds 800-160 mg] 1 tab PO BID #14 tab Home Medications: Ambulatory Orders Albuterol Sulfate Nebs [Proventil Nebs] 2.5 mg INH PRN PRN 11/20/15 Losartan Potassium 50 mg PO DAILY 11/20/15 Memantine HCl [Namenda] 10 mg PO BID 11/20/15 Tiotropium [place] Monohydrate [Spiriva Handihaler] 18 mcg IN BID 11/20/15 Metoprolol Tartrate 25 mg PO BID 09/04/18 Rivaroxaban [Xarelto] 20 mg PO BEDTIME 09/04/18 Rosuvastatin Calcium 20 mg PO DAILY 09/04/18 Albuterol Sulfate [Proair Hfa] 2 puff INH DAILY 01/25/19 Donepezil Hydrochloride [Aricept] 10 mg PO DAILY 01/25/19 Montelukast [Singulair] 10 mg PO DAILY 01/25/19 [place]-3 Fatty Acids [Fish Oil] 1 cap PO DAILY 01/25/19 Arformoterol Tartrate [Brovana] 15 mcg IN DAILY 09/26/19 Furosemide [Lasix] 20 mg PO DAILY 09/26/19 Furosemide [Lasix] 20 mg PO PRN 09/26/19 Magnesium 500 mg PO BID 09/26/19 Metolazone 2.5 mg PO PRN 09/26/19 Potassium Chloride [K-Tab] 8 meq PO BID 09/26/19 levETIRAcetam TABLETS [Keppra] 250 mg PO DAILY 09/26/19 Sulfamethoxazole-Trimethoprim [Bactrim Ds 800-160 mg] 1 tab PO BID #14 tab 09/29/19
[2019-09-29 16:54] VITALS: BP 98/63; TEMP 96.8; O2SAT 97
[2019-09-29] MEDS: SULFA/TRIMETH TAB 800/160 (ER) 1 EA TAB PO ONE (17:06)
[2019-09-29] MEDS: SULFA/TRIMETH 800/160 (DS) TAB 1 EA TAB PO ONE ×2 (17:06→17:09)
== END 2019-09-29 17:20 | disposition home or self-care (01) ==
LOC: ER 16:24
DX: S51.812D Laceration without foreign body of left forearm, subsequent encounter (principal); J44.9 Chronic obstructive pulmonary disease, unspecified; I10 Essential (primary) hypertension; F03.90 Unspecified dementia, unspecified severity, without behavioral disturbance, psychotic disturbance, mood disturbance, and anxiety; Z87.891 Personal history of nicotine dependence; W19.XXXD Unspecified fall, subsequent encounter

== ENCOUNTER 2019-10-06 16:01 | Inpatient (IN) | payer MEDICARE, BC ==
--- NOTE | 2019-10-06 16:21 | ED.PDOC ---
History of Present Illness - General Chief Complaint: Respiratory Problem Time Seen by Provider: 10/06/19 16:20 Source: patient, family - History of Present Illness Initial Comments: 78 yo M with PMH sig for COPD and dementia who presents with culturist, who provided most of the history, reports concerns for lightheadedness, generalized weakness, falls. Equity Analyst reports 5 falls over the past week, has now been using her walker, denies head injury, one fall caused wound to LUE, has been managed by wound care daily, they were concerned for infection and sent him to the ED several days ago, was placed on bactrim. Reports when they came today his BP was in the 80's and they were concerned. Pt also has hx of COPD but pt's SOB appears to be worse per , cough appears more wet than in past. also reports being on lasix which had improved his swelling though she notes decreased urine outpt. Pt states he feels fine at this time and denies f/c, cough, CP, SOB, abd pain, back pain, n/v/d, urinary sx. denies f/c, CP, COVID exposure, abd pain, n/v/d. Allergies/Adverse Reactions: Allergies NO KNOWN ALLERGY Allergy (Verified 10/06/19 16:57) Home Medications: Ambulatory Orders Albuterol Sulfate Nebs [Proventil Nebs] 2.5 mg INH PRN PRN 11/20/15 Losartan Potassium 50 mg PO DAILY 11/20/15 Memantine HCl [Namenda] 10 mg PO BID 11/20/15 Tiotropium [place] Monohydrate [Spiriva Handihaler] 18 mcg IN BID 11/20/15 Metoprolol Tartrate 25 mg PO BID 09/04/18 Rivaroxaban [Xarelto] 20 mg PO BEDTIME 09/04/18 Rosuvastatin Calcium 20 mg PO DAILY 09/04/18 Albuterol Sulfate [Proair Hfa] 2 puff INH DAILY 01/25/19 Donepezil Hydrochloride [Aricept] 10 mg PO DAILY 01/25/19 Montelukast [Singulair] 10 mg PO DAILY 01/25/19 [place]-3 Fatty Acids [Fish Oil] 1 cap PO DAILY 01/25/19 Arformoterol Tartrate [Brovana] 15 mcg IN DAILY 09/26/19 Furosemide [Lasix] 20 mg PO DAILY 09/26/19 Furosemide [Lasix] 20 mg PO PRN 09/26/19 Magnesium 500 mg PO BID 09/26/19 Metolazone 2.5 mg PO PRN 09/26/19 Potassium Chloride [K-Tab] 8 meq PO BID 09/26/19 levETIRAcetam TABLETS [Keppra] 250 mg PO DAILY 09/26/19 Sulfamethoxazole-Trimethoprim [Bactrim Ds 800-160 mg] 1 tab PO BID #14 tab 09/29/19 Review of Systems - Review of Systems Constitutional: Denies: chills, fever Respiratory: States: cough, short of breath Cardiology: Denies: chest pain Gastrointestinal/Abdominal: Denies: abdominal pain, diarrhea, nausea, vomiting Genitourinary: States: other - decreased urine outpt. Denies: hematuria Musculoskeletal: Denies: back pain, neck pain Skin: States: other - LUE wound Neurological: States: weakness - generalized, other - lightheadedness, falls Unable to Obtain Due To: dementia Past Medical History (General) - Patient Medical History Hx Seizures: Yes Hx Stroke: No Hx Dementia: Yes Hx Asthma: No Hx of COPD: Yes Hx Cardiac Disorders: No Hx Congestive Heart Failure: No Hx Pacemaker: No Hx Hypertension: Yes Hx Diabetes: No Hx Cancer: No Hx MRSA: No - Vaccination History Hx Tetanus, Diphtheria Vaccination: Yes Hx Influenza Vaccination: Yes Hx Pneumococcal Vaccination: Yes - Social History Hx Tobacco Use: Yes Hx Alcohol Use: Yes Hx Substance Use: No Hx Physical Abuse: No Hx Emotional Abuse: No Family Medical History - Family History Father Family History: Unknown Hx Cardiac Disease: Yes - dad Hx Family;Other: Mental problem-mom;Brothers-Alzheimers disease Physical Exam - Physical Exam General Appearance: Alert, Well Developed, Well Nourished Eyes, Ears, Nose, Throat Exam: PERRL/EOMI, normal ENT inspection, other - Head atraumatic Neck: non-tender, full range of motion, supple Respiratory: chest non-tender, no respiratory distress, no accessory muscle use, decreased breath sounds - bases, mild, wheezing - slight, intermittent Cardiovascular/Chest: normal peripheral pulses, regular rate, rhythm, no edema, no gallop, no JVD, no murmur Peripheral Pulses: radial,right: 2+, radial,left: 2+ Gastrointestinal/Abdominal: non tender, soft, no organomegaly, no pulsatile mass Extremity: normal range of motion, non-tender, normal inspection, no pedal edema, no calf tenderness, normal capillary refill Neurologic: no motor/sensory deficits, alert, normal mood/affect, other - Oriented only to self Skin Exam: normal color, warm/dry, other - superficial wound with healthy tissue and scattered granultion tissue to LUE; no discharge, fluctuance, induration, warmth Progress - Progress Progress: 10/06/19 17:13 Pt WBC elevated, now with 2 SIRS criteria, will activate sepsis. 10/06/19 18:41 Discussed with [facility] midlevel for hospitalist, accepts for admission. Requests valdez catheter placement. 10/06/19 18:45 Updated pt and about results and need for admission. She requests that she be able to stay with the pt. She states he gets uncontrollable if she leaves 2/2 dementia. Escalated to charge nurse. Sepsis exam complete. Claudia Tsai MD Emergency Medicine Physician Billing Number [id number] - Results/Orders Results/Orders: 10/06/19 16:30 EKG STAT 10/06/19 16:47 SARS-COV2 RT-PCR HIGH RISK Stat 10/06/19 17:10 Isolation:Droplet .PRN 10/06/19 17:30 Albuterol Inhaler [Ventolin Hfa Inhaler] 2 puff INH Q4H 10/06/19 18:00 BLOOD CULTURE Stat 10/06/19 18:42 ED Intent to Admit Routine 10/06/19 19:02 Catheter:Valdez QSHIFT 10/06/19 19:03 URINALYSIS Stat Laboratory Results - last 24 hr 10/06/19 10/06/19 10/06/19 16:35 16:35 16:35 WBC 12.3 H RBC 3.52 L Hgb 10.9 L Hct 32.4 L MCV 92.0 MCH 31.1 H MCHC 33.8 RDW 14.1 Plt Count 360 MPV 7.4 Absolute Neuts (auto) 10.10 H Absolute Lymphs (auto) 1.30 Absolute Monos (auto) 0.70 Absolute Eos (auto) 0.10 Absolute Basos (auto) 0.10 Neutrophils % 82.2 H Lymphocytes % 10.8 L Monocytes % 6.0 Eosinophils % 0.5 L Basophils % 0.5 pCO2 pO2 HCO3 ABG pH ABG O2 Saturation ABG Base Excess ABG Deoxyhemoglobin Oxyhemoglobin % Carboxyhemoglobin % Methemoglobin % Sat Calc Total Hemoglobin Sodium 133 L Potassium 4.5 Chloride 95 L Carbon Dioxide 27 Anion Gap 15.5 BUN 39 H Creatinine 2.87 H BUN/Creatinine Ratio 13.6 Random Glucose 144 H Serum Osmolality 278.3 Lactic Acid Calcium 8.8 Total Bilirubin 0.4 AST 37 ALT 25 Alkaline Phosphatase 42 Troponin I 0.02 Serum Total Protein 7.0 Albumin 4.0 Globulin 3.0 Albumin/Globulin Ratio 1.3 10/06/19 10/06/19 16:44 17:29 WBC RBC Hgb Hct MCV MCH MCHC RDW Plt Count MPV Absolute Neuts (auto) Absolute Lymphs (auto) Absolute Monos (auto) Absolute Eos (auto) Absolute Basos (auto) Neutrophils % Lymphocytes % Monocytes % Eosinophils % Basophils % pCO2 48 pO2 26 L* HCO3 30.8 ABG pH 7.416 ABG O2 Saturation 41.2 L* ABG Base Excess 5.4 ABG Deoxyhemoglobin 57.7 H Oxyhemoglobin % 40.4 L Carboxyhemoglobin % 1.0 Methemoglobin % Sat 0.9 Calc Total Hemoglobin 11.1 L Sodium Potassium Chloride Carbon Dioxide Anion Gap BUN Creatinine BUN/Creatinine Ratio Random Glucose Serum Osmolality Lactic Acid 2.4 H* Calcium Total Bilirubin AST ALT Alkaline Phosphatase Troponin I Serum Total Protein Albumin Globulin Albumin/Globulin Ratio CXR: EXAM DESCRIPTION: Chest,1 View CLINICAL HISTORY: 78 years Male SOB COMPARISON: 01/25/2019 FINDINGS: There is a poor depth of inspiration with probable atelectasis in both lung bases, similar to the previous. Cardiac size is stable. Calcified and tortuous aorta. No pneumothorax. IMPRESSION: Poor inspiration with atelectasis in both lung bases Electronically signed by: Dixie Wilson MD 10/06/2019 4:[address] head: EXAM DESCRIPTION: Head CLINICAL HISTORY: falls, lightheadedness COMPARISON: September 18, 2018 TECHNIQUE: Contiguous axial images of the brain were obtained without the administration of intravenous contrast.This exam was performed according to our departmental dose-optimization program, which includes automated exposure control, adjustment of the mA and/or kV according to patient size and/or use of iterative reconstruction technique. FINDINGS: There is no acute intracranial hemorrhage or mass effect. Areas of low attenuation in the periventricular and subcortical white matter are nonspecific but suggestive of small vessel disease. There is generalized atrophy. Ventricular system is within normal limits. There is adequate hogan-white matter differentiation. There is no skull fracture. Mucoperiosteal thickening of the maxillary sinuses, left sphenoid and left ethmoid sinuses compatible with chronic sinusitis.. There is atherosclerosis. IMPRESSION: No acute intracranial abnormalities. 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, Incomplete RBBB, LAF block Departure - Departure Clinical Impression: RANDALL (acute kidney injury), Volume depletion Time of Disposition: 17:13 Disposition: Admit Patient Condition: Fair Home Medications: Ambulatory Orders Albuterol Sulfate Nebs [Proventil Nebs] 2.5 mg INH PRN PRN 11/20/15 Losartan Potassium 50 mg PO DAILY 11/20/15 Memantine HCl [Namenda] 10 mg PO BID 11/20/15 Tiotropium [place] Monohydrate [Spiriva Handihaler] 18 mcg IN BID 11/20/15 Metoprolol Tartrate 25 mg PO BID 09/04/18 Rivaroxaban [Xarelto] 20 mg PO BEDTIME 09/04/18 Rosuvastatin Calcium 20 mg PO DAILY 09/04/18 Albuterol Sulfate [Proair Hfa] 2 puff INH DAILY 01/25/19 Donepezil Hydrochloride [Aricept] 10 mg PO DAILY 01/25/19 Montelukast [Singulair] 10 mg PO DAILY 01/25/19 [place]-3 Fatty Acids [Fish Oil] 1 cap PO DAILY 01/25/19 Arformoterol Tartrate [Brovana] 15 mcg IN DAILY 09/26/19 Furosemide [Lasix] 20 mg PO DAILY 09/26/19 Furosemide [Lasix] 20 mg PO PRN 09/26/19 Magnesium 500 mg PO BID 09/26/19 Metolazone 2.5 mg PO PRN 09/26/19 Potassium Chloride [K-Tab] 8 meq PO BID 09/26/19 levETIRAcetam TABLETS [Keppra] 250 mg PO DAILY 09/26/19 Sulfamethoxazole-Trimethoprim [Bactrim Ds 800-160 mg] 1 tab PO BID #14 tab 09/29/19
--- NOTE | 2019-10-06 16:38 | RAD ---
EXAM DESCRIPTION: Chest,1 View CLINICAL HISTORY: 78 years Male SOB COMPARISON: 01/25/2019 FINDINGS: There is a poor depth of inspiration with probable atelectasis in both lung bases, similar to the previous. Cardiac size is stable. Calcified and tortuous aorta. No pneumothorax. IMPRESSION: Poor inspiration with atelectasis in both lung bases Electronically signed by: Dixie Wilson MD 10/06/2019 4:36 PM CDT
[2019-10-06] MEDS ORDERED: ALBUTEROL INHALER 64 PUFF/8GM INH ONE (17:06)
[2019-10-06] MEDS ORDERED: SODIUM CHLORIDE 0.9% 1000ML 1,000 ML IVS ONE ×2 (17:11→20:56)
[2019-10-06] MEDS ORDERED: CEFEPIME 1 GM in SODIUM CHLORIDE 0.9% 50ML 50 ML IVPB ONE (17:12)
[2019-10-06] MEDS: ALBUTEROL INHALER 64 PUFF/8GM INH SCH ×2 (18:01→21:30)
--- NOTE | 2019-10-06 18:28 | CT ---
EXAM DESCRIPTION: Head CLINICAL HISTORY: falls, lightheadedness COMPARISON: September 18, 2018 TECHNIQUE: Contiguous axial images of the brain were obtained without the administration of intravenous contrast.This exam was performed according to our departmental dose-optimization program, which includes automated exposure control, adjustment of the mA and/or kV according to patient size and/or use of iterative reconstruction technique. FINDINGS: There is no acute intracranial hemorrhage or mass effect. Areas of low attenuation in the periventricular and subcortical white matter are nonspecific but suggestive of small vessel disease. There is generalized atrophy. Ventricular system is within normal limits. There is adequate hogan-white matter differentiation. There is no skull fracture. Mucoperiosteal thickening of the maxillary sinuses, left sphenoid and left ethmoid sinuses compatible with chronic sinusitis.. There is atherosclerosis. IMPRESSION: No acute intracranial abnormalities. Electronically signed by: Baldemar Armstrong MD 10/06/2019 6:26 PM CDT
--- NOTE | 2019-10-06 20:32 | HP ---
SUPERVISING PHYSICIAN: Rick Nguyen MD CHIEF COMPLAINT: Shortness of breath. HISTORY OF PRESENT ILLNESS: Mr. Emerson is a 78-year-old male patient with a past medical history significant for chronic obstructive pulmonary disease and dementia. He presented to the Emergency Room with his who fortunately was able to produce most of his history. The patient has dementia and is not a very good historian. His endorses that the patient has been having some lightheadedness, general weakness and falls, 5 within the last week. They denied any actual injuries, but one fall did result in a wound to the left upper extremity for which he was seen in the ER here at [facility] for treatment on 09/29/19. At that time, he was started on Bactrim. He also has home health through [facility] that has been managing his wound. [facility] reported that his blood pressure had been low with systolics in the apparent 80s. Thus, he was sent to the ER for evaluation. His does endorse that shortness of breath from his chronic obstructive pulmonary disease appears to be worse and his cough in the past has been more wet, but he has been on Lasix 20 mg b.i.d. This is improved as well as swelling to the lower extremities, but she is concerned that he is not having much urine output. The patient actually was denying any complaints at time of admission to the ER, denied any recent exposure to COVID-19 patients, any travel, any high risk exposure. He denied any abdominal pains, nausea, vomiting or diarrhea. His initial labs in the ER did show white count 12,300 with left shift. Blood gas analysis was completed, but was a venous sample as pO2 was 26, but the patient was in no distress and on 2 liters nasal cannula was satting mid-90s. His chemistries did show a low sodium of 133. BUN was elevated at 39. Creatinine 2.87. Review of past laboratory studies shows that his creatinine has been running fairly normal except for the last 1-1/2 weeks and he has been on Bactrim. His baseline creatinine appears to be around 0.86. He also had an elevated lactic acid of 2.4. Liver functions were all within normal limits as well as troponin at 0.02 and BNP slightly elevated at only 105. His vital signs in the Emergency Room showed he was afebrile with temperature 97.8, pulse 95, blood pressure low at 118/55, respirations 22 to 24, 95% room air saturation. He was given 1 liter of fluid which did help his blood pressure improve to systolic of 134. Chest x-ray, single-view, in the ER per radiologic interpretation showed poor inspiration with atelectasis in both lungs. Given the fact that he had been falling over the last week, CT of his head was done without contrast and per radiologic interpretation, there were no intracranial abnormalities noted. Given the fact that he has been on Bactrim in the last week and he has had a significant increase in his creatinine levels to indicate acute kidney injury with what looks to be underlying dehydration from Lasix as well as question of whether or not he has urinary retention, because according to his he has not urinating very much when he goes, but he goes a little bit all the time, we are going to go ahead and place a Phillips and admit him for acute kidney injury, dehydration and concerns for underlying chronic obstructive pulmonary disease exacerbation given his initial degree of shortness of breath. He was admitted in stable condition. PAST MEDICAL HISTORY: 1. Paroxysmal atrial fibrillation. 2. Congestive heart failure with stage 3 diastolic failure. His last echocardiogram in June of 2018 showed ejection fraction 60%. 3. Hyperlipidemia. 4. Hypertension. 5. Chronic obstructive pulmonary disease. 6. Worsening dementia. 7. Osteopenia. PAST SURGICAL HISTORY: 1. Bilateral inguinal hernia repairs. HOME MEDICATIONS: We are still awaiting an updated list of verified medications. Please see that once they are verified. ALLERGIES: NO KNOWN DRUG ALLERGIES. FAMILY HISTORY: Positive for congestive heart failure and coronary artery disease. SOCIAL HISTORY: The patient is retired. He is a former mailman. He lives with his in [place]. He has a history of smoking, but quit multiple years previously. He used to drink alcohol on a regular basis, but according to his , now maybe only once a month when a friend brings a beer by. He does apparently utilize a walker at home and has home health through [facility]. REVIEW OF SYSTEMS: CONSTITUTIONAL: Negative for any fevers, chills. He does note some general malaise and has had some recent falls and generalized weakness. No unintentional weight loss. RESPIRATORY: Positive for cough, shortness of breath. CARDIOVASCULAR: Negative for chest pain, palpitations. He apparently has had either syncopal or pre-syncopal episodes that are associated with falling. GASTROINTESTINAL: Negative for nausea, vomiting, diarrhea, constipation or abdominal pain. GENITOURINARY: His does endorse he has decreased urine output and frequency increased, but denies hematuria or any past history urinary retention. MUSCULOSKELETAL: Negative for CVA or vertebral tenderness. SKIN: His left upper extremity on the left forearm has a wound that is healing. No other reported skin breakdown, rashes, lesions or moles. NEUROLOGIC: Generalized weakness with some lightheadedness and what may be syncopal or pre-syncopal episodes, but denies any ataxia, seizures or other focal deficits. He does have history of dementia, but apparently is close to his baseline. HEMATOLOGIC: Denies easy bruising, unexplained bleeding or transfusion reactions. PHYSICAL EXAMINATION: VITAL SIGNS: Temperature 97.8, pulse 95, blood pressure 118/55, respirations 20 to 24, O2 saturation 95%. GENERAL: The patient is ill appearing, but does not appear to be in any acute distress. HEENT: Tympanic membranes clear bilaterally. Oropharynx is pink with dry mucous membranes. NECK: Supple, nontender with full range of motion. RESPIRATORY: Lung sounds are decreased towards the bases with very slight inspiratory and expiratory wheezing, but no obvious respiratory distress. Chest wall excursion is equal bilaterally. CARDIOVASCULAR: Regular rate and rhythm without any appreciable murmurs, gallops, or rubs. ABDOMEN: Obese, but soft, nontender. Positive bowel sounds. EXTREMITIES: There is no edema. He moves all extremities ad adarsh. There is no cyanosis or clubbing. NEUROLOGIC: Cranial nerves II-XII are grossly intact. Facial features are symmetrical. Extraocular movements are within normal limits. The patient is alert to himself and his , but not to his current location or any other historical dates. His reports she feels he is at baseline mental status. SKIN: Warm, pink and dry. There is a superficial wound that has some scattered granulation tissue, but no obvious discharge, fluctuance, induration or warmth. It appears to be healing by secondary intention without any complications. No signs of obvious infection. There is no significant erythema or cellulitis around the area in question. LABORATORY: White count 12,300, hemoglobin 10.9, hematocrit 32.4, platelet count 360,000. Differential shows a left shift. His sodium is low at 133, potassium 4.5, BUN 39, creatinine 2.87, lactic acid 2.4, calcium 8.8, magnesium 2.4. Liver functions all within normal limits. Troponin 0.02. BNP 105. Urinalysis with a cathed specimen was without any significant findings. Serological testing included group A strep that was negative. MICROBIOLOGY: Blood cultures pending. Influenza pending. Group A strep culture pending. RADIOLOGY: Chest x-ray per radiologic interpretation showed poor inspiration with atelectasis in both lung bases. CT of the head without contrast without any acute findings per radiologic interpretation. ASSESSMENT: 1. Acute renal failure, possibly combination of prerenal azotemia from underlying dehydration and post renal obstruction in the form of questionable bladder outlet obstruction with some urinary retention, with some exacerbation by recent administration of Bactrim. 2. History of paroxysmal atrial fibrillation. 3. Hyponatremia, mild, probably related to Lasix administration and resulting in the patient's generalized weakness and increasing number of falls. 4. History of congestive heart failure with last echocardiogram in June of 2018 showing a Stage 3 diastolic dysfunction with ejection fraction 60% with no current signs of exacerbation. 5. Chronic obstructive pulmonary disease with some exacerbation with concerns for possible developing community acquired pneumonia. 6. History of hypertension, but mildly hypotensive on admission, likely due to volume depletion from dehydration. 7. Sepsis, possibly due to chronic obstructive pulmonary disease exacerbation with the patient having elevated lactic acid, shortness of breath and leukocytosis with a left shift. PLAN: Mr. Emerson is going to be admitted for treatment of acute kidney injury with questionable renal failure, again, with concerns for pre and post renal complications. We will give him fluids slowly as he does have a history of congestive heart failure. We will hold his Lasix at this point. We will also place a Phillips catheter with concerns for urinary retention and monitor his I&Os closely as we give him fluids to ensure that he does not get fluid overload and complications. We will review his medications and resume those as appropriate to care as soon as those are available. In regards to his chronic obstructive pulmonary disease exacerbation, I cannot completely rule out a community acquired pneumonia developing with the mild leukocytosis although he is showing good saturations on room air, but give his COPD history and age, we will go ahead and treat him with antibiotics including empiric coverage with oral azithromycin and IV Rocephin. Given he is at risk for COVID-19 from the standpoint of COPD, although his exposure is extremely low, he is currently being tested. He will remain in airborne isolation until that is complete and back. He will be on DVT prophylaxis with Xarelto. We will resume home medications once those have been update and verified. He will be on O2 as needed to maintain O2 saturations of 92% to 94%. We will have him on albuterol handheld inhaler until he can be transitioned to a normal non-isolation room if his COVID-19 is negative. If he does show decline, certainly we will have consideration of starting him on some nebulizers, but at this point, we will continue with inhalers. I will hold off on any Solu-Medrol at this point as he was only having minimal wheezing and see how he does overnight. I anticipate his length of stay to be at least 2 to 3 days. Until the patient can transition to outpatient management, we will continue to monitor and treat as needed. #[id number] MTDD
[2019-10-06] MEDS ORDERED: ALUM & MAG HYDROX-SIMETHICONE 30 ML UD PO PRN (20:50)
[2019-10-06] MEDS ORDERED: SODIUM CHLORIDE 0.9% (FLUSH) 10 ML SYG IV PRN (20:50)
[2019-10-06] MEDS ORDERED: ACETAMINOPHEN 325 MG TAB PO PRN (20:50)
[2019-10-06] MEDS ORDERED: ONDANSETRON INJ 4 MG/2 ML VIAL IV PRN (20:50)
[2019-10-06] MEDS ORDERED: MAGNESIUM HYDROXIDE 30 ML UD PO PRN (20:50)
[2019-10-06] MEDS: IV SET AND CAP CHANGE INJ INJ SCH (21:00)
[2019-10-06] MEDS ORDERED: SODIUM CHLORIDE 0.9% 1000ML 1,000 ML ONE (22:15)
[2019-10-06] MEDS ORDERED: ALBUTEROL INHALER 64 PUFF/8GM INH PRN (22:42)
[2019-10-06] MEDS ORDERED: AZITHROMYCIN 250 MG TAB PO SCH (23:00)
[2019-10-06] MEDS ORDERED: cefTRIAXone SODIUM 1 GM VIAL ONE (23:13)
[2019-10-06] MEDS ORDERED: SODIUM CHL 0.9% 50ML MIN-BAG+ 50 ML IVPB ONE (23:14)
[2019-10-06] MEDS: cefTRIAXone SODIUM 1 GM in SODIUM CHL 0.9% 50ML MIN-BAG+ 50 ML IVPB SCH (23:22)
[2019-10-07] MEDS: ALBUTEROL INHALER 64 PUFF/8GM INH SCH ×6 (01:30→20:35)
[2019-10-07] MEDS ORDERED: LOSARTAN POTASSIUM 25 MG TAB ONE (08:35)
[2019-10-07] MEDS: METOPROLOL TARTRATE 25 MG TAB PO SCH ×2 (09:12→20:57)
[2019-10-07] MEDS: MEMANTINE 10 MG TAB PO SCH ×2 (09:12→20:57)
[2019-10-07] MEDS: LOSARTAN POTASSIUM 100 MG TAB PO SCH (09:13)
[2019-10-07] MEDS: MAGNESIUM OXIDE 400 MG TAB PO SCH ×2 (09:21→20:57)
[2019-10-07] MEDS: FISH OIL 1,200 MG CAP PO SCH (09:21)
[2019-10-07] MEDS: AZITHROMYCIN 250 MG TAB PO SCH (09:21)
[2019-10-07] MEDS: ARFORMOTEROL TARTRATE 15 MCG/2 ML NEB NEB SCH (11:33)
[2019-10-07] MEDS: RIVAROXABAN 10 MG TAB PO SCH (12:06)
[2019-10-07] MEDS: SODIUM CHLORIDE 0.9% 1000ML 1,000 ML IVS PRN (12:06)
[2019-10-07] MEDS: MONTELUKAST 10 MG TAB PO SCH (12:06)
[2019-10-07] MEDS ORDERED: VANCOMYCIN PER PHARMACY IVPB SCH (15:30)
[2019-10-07] MEDS: VANCOMYCIN HCL INJ 1,000 MG, VANCOMYCIN HCL INJ 250 MG in SODIUM CHLORIDE 0.9% 250ML 25... IVPB SCH (16:30)
--- NOTE | 2019-10-07 17:34 | PN ---
DATE: 10/07/19 SUPERVISING PHYSICIAN: Rick Nguyen MD SUBJECTIVE: The patient's stayed with the patient all night and said he did not sleep hardly any and was very restless. She is anxious to take him back home but at this point he has a positive blood culture with a gram positive cocci and still shows increased renal function. I did discuss with her at length that more than likely he will need to be here at least another 24 to 48 hours before he will be stable enough to go home. He remains afebrile and hemodynamically stable. OBJECTIVE: VITAL SIGNS: Temperature 97.7, pulse 87, blood pressure has improved to 144/80, respirations are 22, oxygen saturation 94% on room air. I&O: Negative balance, he does have a Phillips in place. Overall balance shows close to a liter at 960, weight 77.9 kg. GENERAL: The patient is resting comfortably, at time of exam was resting and asleep, he does arouse easily. He is confused when he is aroused but pleasant. It takes him a little bit to come around and get oriented. Other than that, he does well. His does remain at his bedside. CHEST: Lung sounds continue to remain clear, just diminished toward the bases. There is no obvious rhonchi, rales, or wheezes. HEART: Regular rate and rhythm. ABDOMEN: Soft, non-tender, positive bowel sounds. EXTREMITIES: Without edema. NEUROLOGIC: He is alert to himself, his , not anything else significant in regard to orientation but his reports that he is pretty much at his baseline. LABORATORY: White count has gone down a little bit to 11,600, hemoglobin 9.4, hematocrit 28.2, platelet count 259,000. Differential does show a continued left shift. Chemistries show normal electrolytes. BUN is down to 32, creatinine down to 2.2, BNP last night was 105. Urinalysis was within normal limits with no signs of infection. Again, his group A strep was negative. Influenza was negative by PCR for A and B. Blood cultures did show positive for gram positive cocci preliminary with final workup pending. RADIOLOGY: No additional radiographic studies today. ASSESSMENT: 1. Gram positive cocci bacteremia, etiology uncertain at this point, possibly secondary to underlying pneumonia that is just not showing on x-ray versus healing wound on his left upper extremity. 2. Acute renal failure, showing some improvement with concerns for a combination of prerenal azotemia and post renal obstruction with patient showing some urinary retention with initial placement of a Phillips catheter. Will need to continue further workup with exacerbation from recent administration of Bactrim for left upper extremity wound treatment. 3. History of paroxysmal atrial fibrillation showing controlled ventricular rate. 4. Hyponatremia, mild, likely due to Lasix administration, now normalized. 5. History of congestive heart failure with last echocardiogram in June of 2018 showing a Stage 3 diastolic dysfunction with ejection fraction 60% with no current signs of exacerbation. 6. Chronic obstructive pulmonary disease with some exacerbation with concerns for possible developing community acquired pneumonia with a positive blood culture with gram positive cocci initially with culture pending. 7. Sepsis due to underlying bacteremia with a gram positive cocci, etiology uncertain at this point with the patient having an elevated lactic acid and leukocytosis on admission but showing good improvement with antibiotic coverage with addition of vancomycin on top of oral azithromycin and IV Rocephin. 8. History of hypertension, but initially mildly hypotensive on admission due to volume depletion but showing to be back to baseline and stable. PLAN: We will continue current plan at this point with addition of vancomycin added to his antibiotic regimen along with Rocephin and azithromycin. Again, I am not sure where the gram positive cocci came from, whether that is an actual true positive or a contamination, however, given his underlying history there is concern that it may have developed form pneumonia. His urine was clean. The wound on his upper extremity could be a possible etiology, although it looks pretty good and is healing well. Phillips catheter remains in place. I did discuss with them that after 24 hours and we get him out of airborne isolation where we can do a pre and postvoid, we will work getting his Phillips out and see if he was actually having some true urinary retention. If he does, certainly, we will need to followup with urology. Again, with 2 liters of fluid last night his lactic acid normalized and went ahead and continued with IV fluids this morning just at a low rate as he has not shown a real aggressive oral intake, especially today since he is sleeping and we will monitor that closely with his Phillips. He is on DVT prophylaxis with his Xarelto and his medications had been resumed except the Lasix. His COVID-19 testing continues to be pending. He is on albuterol inhalers as per protocol. I still do not see any reason to give him any Solu-Medrol as he is doing well, not having any wheezing. I anticipate will probably not be able to discharge him at least until Friday, possibly Friday. Until then, we will continue to monitor and treat as needed. #[id number] MTDD
[2019-10-07] MEDS ORDERED: cefTRIAXone SODIUM 1 GM VIAL ONE (19:16)
[2019-10-07] MEDS ORDERED: MEMANTINE 10 MG TAB ONE (19:16)
[2019-10-07] MEDS ORDERED: METOPROLOL TARTRATE 25 MG TAB ONE (19:17)
[2019-10-07] MEDS ORDERED: SODIUM CHL 0.9% 50ML MIN-BAG+ 50 ML IVPB ONE (19:17)
[2019-10-07] MEDS ORDERED: ATORVASTATIN 20 MG TAB PO ONE (19:17)
[2019-10-07] MEDS ORDERED: MAGNESIUM OXIDE 400 MG TAB ONE (19:17)
[2019-10-07] MEDS: ATORVASTATIN 20 MG TAB PO SCH (20:56)
[2019-10-07] MEDS ORDERED: ALBUTEROL SULFATE 2.5 MG/3 ML VIAL NEB PRN (21:14)
[2019-10-07] MEDS ORDERED: ALPRAZolam 0.25 MG TAB PO PRN (22:11)
[2019-10-07] MEDS: cefTRIAXone SODIUM 1 GM in SODIUM CHL 0.9% 50ML MIN-BAG+ 50 ML IVPB SCH (22:48)
[2019-10-08] MEDS: ALBUTEROL INHALER 64 PUFF/8GM INH SCH ×3 (01:30→11:20)
[2019-10-08] MEDS: SODIUM CHLORIDE 0.9% 1000ML 1,000 ML IVS PRN (03:04)
[2019-10-08] MEDS ORDERED: TIOTROPIUM INHALER INH SCH (08:00)
[2019-10-08] MEDS: ALBUTEROL SULFATE 2.5 MG/3 ML VIAL NEB SCH ×3 (08:19→20:30)
[2019-10-08] MEDS: ARFORMOTEROL TARTRATE 15 MCG/2 ML NEB NEB SCH (08:19)
[2019-10-08] MEDS: MONTELUKAST 10 MG TAB PO SCH (08:39)
[2019-10-08] MEDS: LOSARTAN POTASSIUM 100 MG TAB PO SCH (08:39)
[2019-10-08] MEDS: AZITHROMYCIN 250 MG TAB PO SCH (08:39)
[2019-10-08] MEDS: FISH OIL 1,200 MG CAP PO SCH (08:40)
[2019-10-08] MEDS: MEMANTINE 10 MG TAB PO SCH ×2 (08:40→20:55)
[2019-10-08] MEDS: MAGNESIUM OXIDE 400 MG TAB PO SCH ×2 (08:40→20:55)
[2019-10-08] MEDS: METOPROLOL TARTRATE 25 MG TAB PO SCH ×2 (08:41→20:56)
[2019-10-08] MEDS: RIVAROXABAN 10 MG TAB PO SCH (12:39)
--- NOTE | 2019-10-08 12:53 | PN ---
SUPERVISING PHYSICIAN: Rick Nguyen MD DATE: 10/08/19 SUBJECTIVE: The patient is lying in bed. He is asleep. He awakens easily. He does mumble a bit. His is at the bedside. He said he has been somewhat restless and not sleeping well at night, but he is still coughing quite a bit. OBJECTIVE: VITAL SIGNS: Temperature 98.2, heart rate 72, blood pressure 161/74, respiratory rate 18, O2 saturation 95%on room air. RESPIRATORY: Somewhat diminished at the bases, but otherwise clear to auscultation. CARDIAC: Regular rate and rhythm. GASTROINTESTINAL: Abdomen is soft, nondistended, nontender. Bowel sounds are positive. NEUROLOGIC: He opens his eyes. He answers some simple yes/no questions appropriately. LABORATORY: WBCs 9.8, hemoglobin 9.4, hematocrit 28. Sodium slightly low at 133, but the remainder of his electrolytes are within normal limits. Creatinine is slightly improved to 1.62. His preliminary blood cultures show no growth after 24 hours. All other labs and films have been reviewed via the EMR. ASSESSMENT: 1. Gram positive cocci bacteremia, etiology uncertain at this point, possibly secondary to underlying pneumonia that is just not showing on x-ray versus healing wound on his left upper extremity. 2. Acute renal failure, showing some improvement with concerns for a combination of prerenal azotemia and post renal obstruction with patient showing some urinary retention with initial placement of a Phillips catheter. Will need to continue further workup with exacerbation from recent administration of Bactrim for left upper extremity wound treatment. 3. History of paroxysmal atrial fibrillation showing controlled ventricular rate. 4. Hyponatremia, mild, likely due to Lasix administration, now normalized. 5. History of congestive heart failure with last echocardiogram in June of 2018 showing a Stage 3 diastolic dysfunction with ejection fraction 60% with no current signs of exacerbation. 6. Chronic obstructive pulmonary disease with some exacerbation with concerns for possible developing community acquired pneumonia with a positive blood culture with gram positive cocci initially with culture pending. 7. Sepsis due to underlying bacteremia with a gram positive cocci, etiology uncertain at this point with the patient having an elevated lactic acid and leukocytosis on admission but showing good improvement with antibiotic coverage with addition of vancomycin on top of oral azithromycin and IV Rocephin. 8. History of hypertension, but initially mildly hypotensive on admission due to volume depletion but showing to be back to baseline and stable. PLAN: We will continue present supportive care including his antibiotics of vancomycin, Rocephin and azithromycin. We will continue to watch for the blood culture results. He continues to have a Phillips catheter and we will try to do some bladder training in the next day or so, so that can be discontinued prior to discharge. We are also awaiting his COVID-19 results. We will continue with aggressive pulmonary hygiene. We will continue to monitor the patient closely and follow as needed. #[id number] [facility]
[2019-10-08] MEDS: VANCOMYCIN HCL INJ 1,000 MG, VANCOMYCIN HCL INJ 250 MG in SODIUM CHLORIDE 0.9% 250ML 25... IVPB SCH (16:45)
[2019-10-08] MEDS ORDERED: diphenhydrAMINE HCL 50 MG/ML VIAL ONE (20:29)
[2019-10-08] MEDS: TIOTROPIUM INHALER INH SCH (20:30)
[2019-10-08] MEDS ORDERED: diphenhydrAMINE HCL 50 MG/ML VIAL IV PRN (20:53)
[2019-10-08] MEDS: ATORVASTATIN 20 MG TAB PO SCH (21:00)
[2019-10-08] MEDS: cefTRIAXone SODIUM 1 GM in SODIUM CHL 0.9% 50ML MIN-BAG+ 50 ML IVPB SCH (22:38)
[2019-10-09] MEDS: ARFORMOTEROL TARTRATE 15 MCG/2 ML NEB NEB SCH (08:30)
[2019-10-09] MEDS: ALBUTEROL SULFATE 2.5 MG/3 ML VIAL NEB SCH ×3 (08:30→21:00)
[2019-10-09] MEDS: TIOTROPIUM INHALER INH SCH ×2 (09:00→21:00)
[2019-10-09] MEDS: FISH OIL 1,200 MG CAP PO SCH (09:36)
[2019-10-09] MEDS: AZITHROMYCIN 250 MG TAB PO SCH (09:36)
[2019-10-09] MEDS: MONTELUKAST 10 MG TAB PO SCH (09:36)
[2019-10-09] MEDS: METOPROLOL TARTRATE 25 MG TAB PO SCH ×2 (09:36→20:43)
[2019-10-09] MEDS: MAGNESIUM OXIDE 400 MG TAB PO SCH ×2 (09:37→20:43)
[2019-10-09] MEDS: MEMANTINE 10 MG TAB PO SCH ×2 (09:37→20:43)
[2019-10-09] MEDS: LOSARTAN POTASSIUM 100 MG TAB PO SCH (09:37)
--- NOTE | 2019-10-09 10:33 | RAD ---
EXAM: XR Chest, 1 View CLINICAL HISTORY: bacteremia TECHNIQUE: Frontal view of the chest. COMPARISON: 10/06/[address] chest 03/29/2015. FINDINGS: Lungs: Limited basilar evaluation due to soft tissue attenuation. No gross consolidation. Pleural space: Stable mild left basilar pleural thickening. No pneumothorax. Heart: Stable cardiac shadow. Mediastinum: Unremarkable. Bones/joints: Unremarkable. Tubes, lines and devices: Cardiac loop recorder unchanged. IMPRESSION: Limited basilar evaluation with stable chronic changes. Electronically signed by: Yamini Sanchez MD 10/09/2019 10:32 AM CDT
[2019-10-09] MEDS ORDERED: MAGNESIUM SULFATE PREMIX 2GM 2 GM in PREMIX BAG 1 BAG IVPB ONE (11:44)
[2019-10-09] MEDS ORDERED: MAGNESIUM SULFATE PREMIX 2GM 50 ML IVPB ONE (11:57)
[2019-10-09] MEDS: RIVAROXABAN 10 MG TAB PO SCH (12:03)
--- NOTE | 2019-10-09 12:17 | PN ---
SUPERVISING PHYSICIAN: Rick Nguyen MD DATE: 10/09/19 SUBJECTIVE: The patient is lying in bed. He is more awake, His it at the bedside. He denies any nausea or vomiting, chest pain. He only has shortness of breath with exertion. OBJECTIVE: VITAL SIGNS: Temperature 97.5, heart rate 71, blood pressure 136/68, respiratory rate 18, O2 saturation 94%on room air. RESPIRATORY: Diminished at the bases, but otherwise clear to auscultation. He is not tachypneic today. CARDIAC: Regular rate and rhythm. GASTROINTESTINAL: Abdomen is soft, nondistended, nontender. Bowel sounds are positive. NEUROLOGIC: He is awake, alert, and oriented x3. LABORATORY: CBC is unremarkable. Electrolytes are within normal limits with the exception of his magnesium is slightly low at 1.6. Blood cultures are still pending. Chest x-ray shows limited basilar evaluation with stable chronic changes. All other labs and films have been reviewed via the EMR. ASSESSMENT: 1. Gram positive cocci bacteremia, etiology uncertain at this point, possibly secondary to underlying pneumonia that is just not showing on x-ray versus healing wound on his left upper extremity. 2. Acute renal failure, showing some improvement with concerns for a combination of prerenal azotemia and post renal obstruction with patient showing some urinary retention with initial placement of a Phillips catheter. Will need to continue further workup with exacerbation from recent administration of Bactrim for left upper extremity wound treatment. 3. History of paroxysmal atrial fibrillation showing controlled ventricular rate. 4. Hyponatremia, mild, likely due to Lasix administration, now normalized. 5. History of congestive heart failure with last echocardiogram in June of 2018 showing a Stage 3 diastolic dysfunction with ejection fraction 60% with no current signs of exacerbation. 6. Chronic obstructive pulmonary disease with some exacerbation with concerns for possible developing community acquired pneumonia with a positive blood culture with gram positive cocci initially with culture pending. 7. Sepsis due to underlying bacteremia with a gram positive cocci, etiology uncertain at this point with the patient having an elevated lactic acid and leukocytosis on admission but showing good improvement with antibiotic coverage with addition of vancomycin on top of oral azithromycin and IV Rocephin. 8. History of hypertension, but initially mildly hypotensive on admission due to volume depletion but showing to be back to baseline and stable. 9. High risk for COVID-19, awaiting results. PLAN: We will continue present supportive care and continue to await his [employer] from his positive blood culture. Have just given him some magnesium supplementation, will hold on lab. Chest x-ray for tomorrow. Hopefully, he can be discharged tomorrow or the next day pending his results. We will continue with present abnormalities therapy as ordered and will continue to monitor the patient closely and follow as needed. #[id number] [facility]
[2019-10-09] MEDS: VANCOMYCIN HCL INJ 1,000 MG, VANCOMYCIN HCL INJ 250 MG in SODIUM CHLORIDE 0.9% 250ML 25... IVPB SCH (16:55)
[2019-10-09] MEDS: ATORVASTATIN 20 MG TAB PO SCH (20:43)
[2019-10-09] MEDS: IV SET AND CAP CHANGE INJ INJ SCH (20:43)
[2019-10-09] MEDS: cefTRIAXone SODIUM 1 GM in SODIUM CHL 0.9% 50ML MIN-BAG+ 50 ML IVPB SCH (22:48)
[2019-10-10] MEDS ORDERED: METOPROLOL TARTRATE 25 MG TAB ONE (08:20)
[2019-10-10] MEDS: FISH OIL 1,200 MG CAP PO SCH (08:53)
[2019-10-10] MEDS: METOPROLOL TARTRATE 25 MG TAB PO SCH (08:53)
[2019-10-10] MEDS: MEMANTINE 10 MG TAB PO SCH (08:53)
[2019-10-10] MEDS: MAGNESIUM OXIDE 400 MG TAB PO SCH (08:53)
[2019-10-10] MEDS: MONTELUKAST 10 MG TAB PO SCH (08:53)
[2019-10-10] MEDS: LOSARTAN POTASSIUM 100 MG TAB PO SCH (08:54)
[2019-10-10] MEDS: AZITHROMYCIN 250 MG TAB PO SCH (08:54)
[2019-10-10] MEDS: ARFORMOTEROL TARTRATE 15 MCG/2 ML NEB NEB SCH (09:00)
[2019-10-10] MEDS: TIOTROPIUM INHALER INH SCH (09:00)
[2019-10-10] MEDS: ALBUTEROL SULFATE 2.5 MG/3 ML VIAL NEB SCH (09:00)
[2019-10-10 09:21] VITALS: BP 147/72; TEMP 97.7
[2019-10-10] MEDS ORDERED: POTASSIUM CHLORIDE 8 MEQ TAB PO SCH (11:00)
[2019-10-10] MEDS ORDERED: SULFA/TRIMETH 800/160 (DS) TAB 1 EA TAB PO SCH (11:00)
[2019-10-10] MEDS ORDERED: FUROSEMIDE 40 MG TAB PO SCH (12:00)
[2019-10-10] MEDS: RIVAROXABAN 10 MG TAB PO SCH (12:25)
[2019-10-10 12:56] VITALS: O2SAT 94
[2019-10-10] MEDS ORDERED: cefTRIAXone SODIUM 1 GM in SODIUM CHL 0.9% 50ML MIN-BAG+ 50 ML IVPB ONE (13:00)
[2019-10-10] MEDS ORDERED: cefTRIAXone SODIUM 1 GM VIAL ONE (13:08)
[2019-10-10] MEDS ORDERED: SODIUM CHL 0.9% 50ML MIN-BAG+ 50 ML IVPB ONE (13:09)
--- NOTE | 2019-10-11 08:57 | DS ---
SUPERVISING PHYSICIAN: Rick Nguyen MD DISCHARGE DIAGNOSIS: 1. Gram positive Staphylococcus aureus bacteremia, most likely from wound on his left arm. 2. Acute on chronic renal failure, improved and the patient is at baseline. 3. History of paroxysmal atrial fibrillation, currently with a controlled ventricular rate. 4. Hyponatremia, normalized. 5. History of congestive heart failure with last echocardiogram in June of 2018 showing a Stage 3 diastolic dysfunction with ejection fraction 60% with no current signs of exacerbation. 6. Chronic obstructive pulmonary disease with some exacerbation as well as concerns for possible developing community acquired pneumonia. 7. Sepsis due to underlying bacteremia with a gram positive cocci per blood culture. He had an elevated lactic acid and leukocytosis on admission, but has improved on vancomycin, azithromycin and Rocephin. 8. History of hypertension. 9. High risk for COVID-19, awaiting results. HISTORY OF PRESENT ILLNESS: This is a 78-year-old male patient with a significant history of chronic obstructive pulmonary disease and dementia. He presented to the Emergency Room with his . The patient has had some lightheadedness, general weakness and falls, with 5 within the week prior to his admission.. There were no actual injuries, but one fall did result in a wound to the left upper extremity for which he was seen in the ER here at [facility] for treatment on 09/29/19. He was started on Bactrim. He was sent to the ER initially because his blood pressure had been somewhat low, but his admitted he did have some shortness of breath with minimal urine output. He denied any recent exposure to COVID-19 patients and has been home with self-isolation. The patient's venous pO2 was 26, but the patient was in no distress and sats were in the mid-90s. His chemistries did show a low sodium of 133. BUN was elevated at 39. Creatinine 2.87. His creatinine is usually elevated slightly as he has renal insufficiency. His vital signs in the Emergency Room showed he was afebrile with temperature 97.8, pulse 95, blood pressure 118/55, respirations 22 to 24, 95% room air saturation. He was given 1 liter of fluid which did help his blood pressure. Chest x-ray showed poor inspiration with atelectasis in both lungs. Due to his multiple falls over the previous week, CT of his head was done and showed no intracranial abnormalities. A Phillips catheter was placed for urine output monitoring. Also, because he is at high risk for COVID-19, a COVID-19 test was done. He was admitted in stable condition. HOSPITAL COURSE: He was given judicious fluids and his Lasix was held. His medications were resumed with the exception of his Bactrim and Lasix. He was also on Rocephin and azithromycin. He routinely takes Xarelto, which was sufficient for DVT prophylaxis. It was then reported he had a positive blood culture showing gram positive cocci. Vancomycin was added to his medication regimen. There was initially concern of pneumonia as well as topical infection at the wound site on his left arm. Broad spectrum antibiotics were continued. Initially, he slept poorly, but after 24 to 36 hours, his condition improved. He has improved daily and today his C&S on his blood culture came back and showed Staphylococcus aureus. It was only sensitive to two antibiotics, which were vancomycin and Bactrim. He is at his baseline mentally. Creatinine was 1.42, which is close to baseline. He will be discharged home in stable condition with close followup with Dr. Nguyen next week. LABORATORY: His initial WBCs were 12,300 and are now 9,400 with stable hemoglobin and hematocrit of 9.28 and 29.2. His sodium did improve to 135 with potassium 3.9, chloride 103, carbon dioxide 25. BUN 15, creatinine 1.42. Magnesium 1.6. He did receive supplementation for that. Calcium 8.4. Urinalysis was unremarkable. Group A strep was negative. His one blood culture showed Staphylococcus aureus. The other one show no growth after three days. Influenza type A and B per PCR were both negative. His chest x-ray from yesterday showed limited basilar evaluation with stable chronic changes. DISCHARGE PLAN: The patient will be discharged home in stable condition. He will have [facility]. They will also do his wound care on his left arm. He has routine labs scheduled at Dr. Nguyen's office tomorrow, so he will have a followup via telehealth with Dr. Nguyen on October 12 at 11:15 AM. That is a telehealth visit. In addition to his home medications, I have given 15 days of Align twice daily, cefdinir for 5 days and Bactrim for 5 days. He should hold his Lasix until he speaks with Dr. Nguyen on Friday. He has completed his Zithromax treatment. He is to return to the hospital for followup with Dr. Nguyen for any problems or complications. DISCHARGE MEDICATIONS: 1. Spiriva. 2. Namenda. 3. Losartan/potassium. 4. Proventil nebulizers. 5. Rosuvastatin. 6. Xarelto. 7. Metoprolol. 8. [place] 3 fatty acids. 9. Singulair. 10. Brovana. 11. Potassium chloride. 12. Magnesium. 13. Furosemide, which can be held until completion of his Bactrim. 14. Bactrim DS. 15. Align. 16. Cefdinir. #[id number] [facility]
== END 2019-10-10 14:20 | disposition home health service (06) | DRG 871 ==
LOC: ER 16:01 → OBSVTOIN 20:28 → MS 20:28
PROVIDERS: ADMIT Nurse Practitioner Family; ATTEND Nurse Practitioner Acute Care
DX: A41.01 Sepsis due to Methicillin susceptible Staphylococcus aureus (principal); J18.9 Pneumonia, unspecified organism; N17.9 Acute kidney failure, unspecified; E87.1 Hypo-osmolality and hyponatremia; I50.30 Unspecified diastolic (congestive) heart failure; J44.1 Chronic obstructive pulmonary disease with (acute) exacerbation; J44.0 Chronic obstructive pulmonary disease with (acute) lower respiratory infection; N18.9 Chronic kidney disease, unspecified; I48.0 Paroxysmal atrial fibrillation; I11.0 Hypertensive heart disease with heart failure; F03.90 Unspecified dementia, unspecified severity, without behavioral disturbance, psychotic disturbance, mood disturbance, and anxiety; B95.61 Methicillin susceptible Staphylococcus aureus infection as the cause of diseases classified elsewhere; E86.0 Dehydration; E78.5 Hyperlipidemia, unspecified; M85.80 Other specified disorders of bone density and structure, unspecified site; Z87.891 Personal history of nicotine dependence

== ENCOUNTER → 2019-10-13 | Outpatient (CLI) | payer MEDICARE, BC | LOC: NC 17:15 | PROVIDERS: ATTEND Family Medicine | DX: I11.0 Hypertensive heart disease with heart failure (principal); I50.32 Chronic diastolic (congestive) heart failure; J44.9 Chronic obstructive pulmonary disease, unspecified; I48.20 Chronic atrial fibrillation, unspecified ==

== ENCOUNTER → 2019-10-18 | Outpatient (CLI) | payer MEDICARE, BC | LOC: NC 18:37 | PROVIDERS: ATTEND Family Medicine | DX: I11.0 Hypertensive heart disease with heart failure (principal); I50.32 Chronic diastolic (congestive) heart failure; J44.9 Chronic obstructive pulmonary disease, unspecified ==

== ENCOUNTER → 2019-10-21 | Outpatient (CLI) | payer MEDICARE, BC | LOC: ECHO 14:00 | PROVIDERS: ATTEND Family Medicine | DX: I50.32 Chronic diastolic (congestive) heart failure (principal); I51.7 Cardiomegaly; I35.0 Nonrheumatic aortic (valve) stenosis ==

== ENCOUNTER → 2019-11-23 | Outpatient (CLI) | payer MEDICARE, BC | LOC: NC 14:36 | PROVIDERS: ATTEND Family Medicine | DX: I11.0 Hypertensive heart disease with heart failure (principal); I50.32 Chronic diastolic (congestive) heart failure; I48.20 Chronic atrial fibrillation, unspecified; J44.9 Chronic obstructive pulmonary disease, unspecified ==

== ENCOUNTER → 2019-12-22 | Outpatient (CLI) | payer MEDICARE, BC | LOC: NC 12:38 | PROVIDERS: ATTEND Family Medicine | DX: I11.0 Hypertensive heart disease with heart failure (principal); J44.9 Chronic obstructive pulmonary disease, unspecified; I48.20 Chronic atrial fibrillation, unspecified; I50.32 Chronic diastolic (congestive) heart failure ==

== ENCOUNTER → 2020-01-21 | Outpatient (CLI) | payer MEDICARE, BC | LOC: LAB.NP 17:20 | PROVIDERS: ATTEND Family Medicine | DX: I50.32 Chronic diastolic (congestive) heart failure (principal); I11.0 Hypertensive heart disease with heart failure; J44.9 Chronic obstructive pulmonary disease, unspecified; I48.20 Chronic atrial fibrillation, unspecified ==

== ENCOUNTER → 2020-03-02 | Outpatient (CLI) | payer MEDICARE, BC | LOC: NC 13:12 | PROVIDERS: ATTEND Family Medicine | DX: I11.0 Hypertensive heart disease with heart failure (principal); I50.32 Chronic diastolic (congestive) heart failure; R30.0 Dysuria; J44.9 Chronic obstructive pulmonary disease, unspecified; I48.20 Chronic atrial fibrillation, unspecified ==

== ENCOUNTER → 2020-03-10 | Outpatient (CLI) | payer MEDICARE, BC ==
[~2020-03-10] MED LIST: MAGNESIUM SULFATE INJ 1 GM in SODIUM CHLORIDE 0.9% 100ML 100 ML IVPB ONE; MAGNESIUM SULFATE INJ 5 GM/10 ML VIAL ONE; MAGNESIUM SULFATE PREMIX 2GM 50 ML IVPB ONE; SODIUM CHLORIDE 0.9% 100ML 0 ML IVPB ONE; SODIUM CHLORIDE 0.9% 100ML 100 ML IVPB ONE
[2020-03-10 17:18] VITALS: BP 126/89; TEMP 97.6; O2SAT 96
== END ==
LOC: INFRM 16:38
PROVIDERS: ATTEND Family Medicine
DX: E83.42 Hypomagnesemia (principal)
CPT/HCPCS: 96365; J3475; J7050

== ENCOUNTER → 2020-03-14 | Outpatient (CLI) | payer MEDICARE, BC | LOC: NC 13:21 | PROVIDERS: ATTEND Family Medicine | DX: I11.0 Hypertensive heart disease with heart failure (principal); I50.9 Heart failure, unspecified; I48.20 Chronic atrial fibrillation, unspecified; R73.09 Other abnormal glucose ==

== ENCOUNTER → 2020-03-30 | Outpatient (CLI) | payer MEDICARE, BC | LOC: NC 12:03 | PROVIDERS: ATTEND Family Medicine | DX: I11.0 Hypertensive heart disease with heart failure (principal); I50.9 Heart failure, unspecified ==

== ENCOUNTER → 2020-05-11 | Outpatient (CLI) | payer MEDICARE, BC | LOC: NC 14:54 | PROVIDERS: ATTEND Family Medicine | DX: I11.0 Hypertensive heart disease with heart failure (principal); I50.32 Chronic diastolic (congestive) heart failure; I48.20 Chronic atrial fibrillation, unspecified; E83.42 Hypomagnesemia ==

== ENCOUNTER → 2020-05-30 | Outpatient (CLI) | payer MEDICARE, BC | LOC: NC 13:30 | PROVIDERS: ATTEND Family Medicine | DX: I11.0 Hypertensive heart disease with heart failure (principal); I50.9 Heart failure, unspecified; D72.829 Elevated white blood cell count, unspecified ==